=== PATIENT | female | born 1965 | race Caucasian/White ===

== ENCOUNTER 2023-03-05 11:32 | Inpatient (IN) | payer OTHER, MEDICAID, SELFPAY ==
[2023-03-05] VITALS (155 sets, daily range): BP systolic 103–220; BP diastolic 46–105; PULSE 55–90; RESP 9–38; TEMP 33.1–36.4; O2SAT 90–100; BMI 34.3; BMI 33.2
--- NOTE | 2023-03-05 11:32 | DI.CT.S_ITS ---
PROCEDURE: CT STROKE INDICATIONS: stroke TECHNIQUE: Noncontrast 4.5 mm thick angled axial sections acquired from the foramen magnum to the vertex, with coronal reformats. For radiation dose reduction, the following was used: automated exposure control, adjustment of mA and/or kV according to patient size. COMPARISON: None. FINDINGS: Image quality: Excellent. CSF spaces: Basal cisterns are patent. No extra-axial fluid collections. Ventricles are normal in size and shape. Brain: There is a small intraparenchymal hematoma in the posterior fossa at the left midline measuring about 1.4 x 0.9 x 1.4 cm in the left paramedian cerebellar hemisphere posterior to the 4th ventricle. No intraventricular hemorrhage. There are scattered changes white matter hypodensity in periventricular and subcortical regions bilaterally. Cerebral medellin-white matter interface remains normal. Skull and face: Calvarium and visualized facial bones are intact, without suspicious lesions. Sinuses: Mild mucosal thickening in the sinuses bilaterally. No fluid levels. Mastoid cavities are clear. IMPRESSION: 1. Small acute left paramedian cerebellar parenchymal hematoma. 2. Changes mild chronic small vessel ischemia in the cerebral white matter. 3. Findings discussed with Dr. Taylor in the emergency room at 10:51 hours [place] daylight time. Dictated by: Inga Martinez M.D. on 03/05/2023 at 10:50 Approved by: Inga Martinez M.D. on 03/05/2023 at 10:56
--- NOTE | 2023-03-05 11:33 | DI.CT.S_ITS ---
PROCEDURE: CT ANGIO HEAD AND NECK INDICATIONS: stroke TECHNIQUE: After the administration of intravenous contrast, 1 mm thick sections acquired from the aortic arch through the [place]. Post-contrast 4.5 mm thick sections then re-acquired from the foramen magnum to the vertex. 3-dimensional vfiocpc-ymuiafoxw-txnxjxpfwi (MIP) and/or volume rendering reformats were acquired of the central intracranial vasculature and neck separately. For radiation dose reduction, the following was used: automated exposure control, adjustment of mA and/or kV according to patient size. COMPARISON: None. FINDINGS: Image quality: Excellent. BRAIN: CSF spaces: Ventricles are normal in size and shape. Basal cisterns are patent. No extra-axial fluid collections. Brain: No midline shift. Small left paramedian cerebellar hematoma. Lange-white matter interface appears intact. Skull and face: Calvarium and facial bones appear intact, without suspicious lesions. Orbits appear normal. Sinuses: Sinuses and mastoids are clear. HEAD CT ANGIOGRAPHY: Anterior circulation: Intracranial internal carotid arteries are normal in size and flow. The flow within the paired anterior cerebral arteries is normal and symmetric. The flow within the middle cerebral arteries is normal and symmetric. The anterior communicating artery is seen. No aneurysms are seen. Posterior circulation: Visualized portions of the vertebral arteries demonstrate normal caliber, and join to form a normal appearing basilar artery. Flow within the posterior cerebral arteries is normal and symmetric. No aneurysms are seen. NECK CT ANGIOGRAPHY: Carotid system: The great vessels demonstrate a conventional anatomy as they arise from the aortic arch. The origins of the common carotid arteries appear patent. The common carotid arteries demonstrate normal caliber and courses. The bifurcation regions are both widely patent. The left internal carotid artery demonstrates narrowing secondary to noncalcified plaque along the proximal portion for a length of 1.2 cm. This is estimated to be between 50-69%. Mild calcification in the right proximal ICA demonstrates less than 50% subjective luminal stenosis. Posterior circulation: The origins of the vertebral arteries both appear widely patent. The more superior extracranial portions of both vertebral arteries also demonstrate normal courses and calibers. They join to form a normal appearing basilar artery. Soft tissues: Visualized neck soft tissues demonstrate no suspicious abnormalities. Right inferior pole thyroid nodule. Bones: No suspicious bony lesions. Visualized cervical spine appears normally aligned. IMPRESSION: 1. Left paramedian cerebellar intraparenchymal hemorrhage is redemonstrated. 2. No evidence of aneurysm. 3. Normal intracranial arterial circulation. 4. Moderate noncalcified left proximal ICA stenosis, 50-69%. 5. Normal vertebral arterial system. Any quantitative measurements of stenosis were performed using NASCET criteria. Dictated by: Inga Martinez M.D. on 03/05/2023 at 11:10 Approved by: Inga Martinez M.D. on 03/05/2023 at 11:22
--- NOTE | 2023-03-05 11:36 | ED.NEUROSD ---
HPI - Neuro Symptoms/Deficit General Chief Complaint: Neuro Symptoms/Deficit Stated Complaint: stroke Time Seen by Provider: 03/05/23 11:35 History of Present Illness HPI Narrative: 57-year-old female with history of hypertension and multiple prior strokes without residual deficits presents by [facility] for evaluation of an acute onset of neurologic symptoms at about 10 15 this morning. She was at a friend's house when she developed sudden onset difficulty in finding words and slurring at which point EMS was activated. On their arrival they found her to have difficulty with speech and affixed rightward gaze, initial blood pressure was in the 220s over 140s and by the time of arrival she was in the 170s over 120s. Just prior to her arrival she started demonstrating signs of improvement including full range of motion of her extraocular muscles and some improvement with speech. She does not take blood thinners, prior strokes for all thought to be related to hypertensive emergencies. She reportedly is prescribed only Lisinopril and has not been compliant. She denies any recent trauma or injury. Confirms she takes no blood thinners. She denies any recent bleeding or surgical procedures. She states she is feeling much better than when EMS arrived. she is activated as a code stroke and taken directly to CT Related Data Allergies Allergy/AdvReac Type Severity Reaction Status Date / Time No Known Drug Allergies Allergy Verified 03/05/23 11:52 Review of Systems Review of Systems Narrative: GENERAL: see HPI HEENT: Denies sinus pain, ear pain, sore throat, difficulty swallowing, dizziness. RESPIRATORY: Denies dyspnea, cough, wheezing, hemoptysis, sputum. CARDIOVASCULAR: Denies chest pain, palpitations, orthopnea, edema, GASTROINTESTINAL: Denies nausea, vomiting, abdominal pain, diarrhea, constipation, melena. : Denies dysuria, frequency, incontinence, hematuria, urinary retention. MUSCULOSKELETAL: denies weakness, joint pain, or bony pain SKIN: Denies rash, skin lesions, or other NEUROLOGIC: see HPI PSYCHIATRIC: No concerning psychosocial issues. 12 point review of systems is negative except for those stated above Patient History Medical History (Updated 03/05/23 @ 17:44 by Michoacano Taylor DO) Hypertension Exam Narrative Exam Narrative: GENERAL: [57] year old patient appears stated age. Well-developed patient, in moderate distress, eyes closed but open on command. GCS 15 HEAD: Atraumatic. Normocephalic. EYES: Pupils equal round and reactive. Extraocular motions intact. No scleral icterus. No injection or drainage. ENT: Nose without bleeding, purulent drainage. Throat without erythema, tonsillar hypertrophy or exudate. Airway patent. NECK: Trachea midline. Non tender CARDIOVASCULAR: Regular rate and rhythm without murmurs, gallops, or rubs. RESPIRATORY: Clear to auscultation. Breath sounds equal bilaterally. No wheezes, rales, or rhonchi. GASTROINTESTINAL: Abdomen soft, non-tender, nondistended. EXTREMITIES: No edema or joint tenderness. BACK: Nontender without deformity or crepitance. No flank tenderness. NEURO: AOx3. SKIN: No rash or erythema of visible areas Initial Vital Signs Initial Vital Signs: Vital Signs Temperature 96.1 F L 03/05/23 11:39 Pulse Rate 79 03/05/23 11:39 Respiratory Rate 14 03/05/23 11:39 Blood Pressure 212/105 H 03/05/23 11:39 Scores NIH Stroke Scale Level of Conciousness: Alert, keenly responsive Ask month/age: Answers both questions correctly. Open/close eyes, close hand: Performs both tasks correctly Best gaze horizontal: Normal Visual harris: No visual loss Facial palsy: Normal symetrical movement Left arm drift: No drift for full 10 sec Right arm drift: No drift for full 10 sec Left leg drift: No drift for full 5 sec Right leg drift: No drift for full 5 sec Limb ataxia: Absent Sensory on face/arms/legs: Normal, no sensory loss Course Orders Ordered: ED Orders 03/05/23 11:30 Complete Blood Count AUTO DIFF Stat PTT Partial Thromboplastin Ramesh Stat Prothrombin Time INR Stat 03/05/23 11:32 CT Stroke Stat EKG-12 Lead Stat 03/05/23 11:33 CT angio head and neck Stat 03/05/23 11:55 COVID19 -Nasal RAPID Stat 03/05/23 12:10 Comprehensive Metabolic Panel Stat Ethanol (ETOH) Stat Troponin & CK Cardiac Panel Stat 03/05/23 12:28 Urinalysis and Microscopic Stat Urine Drug Screen, Rapid Stat 03/05/23 15:42 Chest [XR chest 1V] Stat 03/05/23 15:43 CT head/brain wo con Stat Acetaminophen (Acetaminophen 325 Mg Tablet) 650 mg PO Q6H PRN PRN Reason: Fever/Mild Pain (1-3) Nicardipine HCl 25 mg/ Sodium (Chloride) 250 mls @ 50 mls/hr IV TITRATE ANNA; Protocol Last Titration: 03/05/23 17:15 Dose: 0 mg/hr, 0 mls/hr Documented By: Titration: 03/05/23 15:23 Dose: 0 mg/hr, 0 mls/hr Documented By: Titration: 03/05/23 15:14 Dose: 3 mg/hr, 30 mls/hr Documented By: Titration: 03/05/23 14:49 Dose: 5 mg/hr, 50 mls/hr Documented By: Titration: 03/05/23 14:26 Dose: 3.5 mg/hr, 35 mls/hr Documented By: Titration: 03/05/23 14:00 Dose: 0 mg/hr, 0 mls/hr Documented By: Titration: 03/05/23 13:42 Dose: 3.5 mg/hr, 35 mls/hr Documented By: Titration: 03/05/23 13:06 Dose: 7 mg/hr, 70 mls/hr Documented By: Titration: 03/05/23 12:45 Dose: 6 mg/hr, 60 mls/hr Documented By: Titration: 03/05/23 12:25 Dose: 5 mg/hr, 50 mls/hr Documented By: Titration: 03/05/23 12:20 Dose: 7 mg/hr, 70 mls/hr Documented By: Admin: 03/05/23 12:02 Dose: 5 mg/hr, 50 mls/hr Documented By: RB Labetalol HCl (Labetalol 20 Mg/4 Ml Syringe) 20 mg IV Q4HR PRN; Protocol PRN Reason: SBP>160 Naloxone HCl (Naloxone 0.4 Mg/Ml Vial) 0.2 mg IV Q2MIN PRN PRN Reason: Opiate Reversal Pantoprazole Sodium (Pantoprazole Dr 40 Mg Tablet) 20 mg PO 0700 ANNA Discontinued Medications Labetalol HCl (Labetalol 20 Mg/4 Ml Syringe) 20 mg IV NOW ONE; Protocol Stop: 03/05/23 11:47 Last Admin: 03/05/23 11:52 Dose: 20 mg Documented By: RB Ondansetron HCl (Ondansetron 4 Mg/2 Ml Inj) 4 mg IV NOW ONE Stop: 03/05/23 15:26 Last Admin: 03/05/23 15:27 Dose: 4 mg Documented By: GOYO Reevaluation(s) Reevaluation #1: patient is not a tPA candidate as her head CT shows acute bleed call to [facility] called spoke with Dr. Adams, we have discussed the patient's clinical course, she has reviewed the images and agrees with nicardipine to control blood pressure with systolic ceiling of 160. Given relatively minor symptoms and size of bleed she recommends aggressive blood pressure treatment, frequent neuro checks and in the absence of any clinical change recommends repeat head CT at the 4-6 hour beth to discuss a plan moving forward Time: 11:45 Consultations Consultation #1: discussed with hospitalist after receipt of repeat head CT which thankfully shows no interval change, patient appropriate for admission here, per my discussion with Neurology noted above there is no indication for transfer in the absence of significant neurologic change or worsening imaging Vital Signs Vital signs: Vital Signs - 8 hr 03/05/23 11:39 03/05/23 11:49 03/05/23 11:42 Temperature 96.1 F L Pulse Rate 79 68 64 Respiratory Rate 14 16 Blood Pressure 212/105 H Pulse Oximetry Oxygen Delivery Method 03/05/23 11:44 03/05/23 11:44 03/05/23 11:45 Temperature Pulse Rate 63 61 Respiratory Rate 14 14 Blood Pressure 212/105 H Pulse Oximetry Oxygen Delivery Method 03/05/23 11:52 03/05/23 11:50 03/05/23 11:51 Temperature Pulse Rate 62 59 L Respiratory Rate 9 L Blood Pressure 220/97 H 220/97 H Pulse Oximetry 96 Oxygen Delivery Method 03/05/23 11:51 03/05/23 11:55 03/05/23 11:55 Temperature Pulse Rate 64 60 Respiratory Rate 10 L 14 Blood Pressure 216/103 H Pulse Oximetry 98 97 Oxygen Delivery Method 03/05/23 12:00 03/05/23 12:02 03/05/23 12:02 Temperature Pulse Rate 59 L 56 L Respiratory Rate 19 13 Blood Pressure 157/91 H Pulse Oximetry 98 Oxygen Delivery Method 03/05/23 12:05 03/05/23 12:05 03/05/23 12:10 Temperature Pulse Rate 55 L Respiratory Rate 14 Blood Pressure 183/94 H 179/93 H Pulse Oximetry 96 Oxygen Delivery Method 03/05/23 12:10 03/05/23 12:15 03/05/23 12:15 Temperature Pulse Rate 59 L 58 L Respiratory Rate 15 15 Blood Pressure 168/93 H Pulse Oximetry 98 98 Oxygen Delivery Method 03/05/23 12:20 03/05/23 12:21 03/05/23 12:21 Temperature Pulse Rate 58 L 58 L Respiratory Rate 15 16 Blood Pressure 141/80 H Pulse Oximetry 98 98 Oxygen Delivery Method 03/05/23 12:25 03/05/23 12:25 03/05/23 12:30 Temperature 91.6 F L Pulse Rate 59 L Respiratory Rate 14 Blood Pressure 135/75 155/75 H Pulse Oximetry 99 Oxygen Delivery Method 03/05/23 12:30 03/05/23 12:35 03/05/23 12:35 Temperature 93.2 F L 93.9 F L Pulse Rate 60 59 L Respiratory Rate 15 15 Blood Pressure 153/77 H Pulse Oximetry 96 96 Oxygen Delivery Method 03/05/23 12:40 03/05/23 12:40 03/05/23 12:45 Temperature 94.1 F L Pulse Rate 58 L Respiratory Rate 13 Blood Pressure 139/71 143/74 H Pulse Oximetry 97 Oxygen Delivery Method Room Air 03/05/23 12:45 03/05/23 12:50 03/05/23 12:50 Temperature 94.1 F L 94.1 F L Pulse Rate 59 L 58 L Respiratory Rate 21 17 Blood Pressure 138/75 Pulse Oximetry 97 97 Oxygen Delivery Method Room Air Room Air 03/05/23 12:55 03/05/23 12:55 03/05/23 13:00 Temperature 94.1 F L Pulse Rate 60 Respiratory Rate 16 Blood Pressure 144/78 H 143/69 H Pulse Oximetry 96 Oxygen Delivery Method Room Air 03/05/23 13:00 03/05/23 13:05 03/05/23 13:05 Temperature 94.1 F L 94.1 F L Pulse Rate 59 L 59 L Respiratory Rate 12 14 Blood Pressure 139/74 Pulse Oximetry 97 96 Oxygen Delivery Method Room Air 03/05/23 13:10 03/05/23 13:10 03/05/23 13:15 Temperature 94.1 F L Pulse Rate 59 L Respiratory Rate 12 Blood Pressure 141/74 H 136/76 Pulse Oximetry 96 Oxygen Delivery Method Room Air 03/05/23 13:15 03/05/23 13:20 03/05/23 13:20 Temperature 94.3 F L 94.3 F L Pulse Rate 60 58 L Respiratory Rate 13 12 Blood Pressure 125/68 Pulse Oximetry 96 95 Oxygen Delivery Method 03/05/23 13:25 03/05/23 13:25 03/05/23 13:30 Temperature 94.3 F L Pulse Rate 63 Respiratory Rate 15 Blood Pressure 126/72 146/78 H Pulse Oximetry 96 Oxygen Delivery Method 03/05/23 13:30 03/05/23 13:35 03/05/23 13:35 Temperature 94.3 F L 94.3 F L Pulse Rate 66 64 Respiratory Rate 13 12 Blood Pressure 144/77 H Pulse Oximetry 94 96 Oxygen Delivery Method Room Air 03/05/23 13:40 03/05/23 13:40 03/05/23 13:45 Temperature 94.3 F L Pulse Rate 62 Respiratory Rate 12 Blood Pressure 130/72 120/70 Pulse Oximetry 96 Oxygen Delivery Method 03/05/23 13:45 03/05/23 13:50 03/05/23 13:50 Temperature 94.5 F L 94.5 F L Pulse Rate 63 63 Respiratory Rate 13 13 Blood Pressure 122/68 Pulse Oximetry 95 94 Oxygen Delivery Method 03/05/23 13:55 03/05/23 13:55 03/05/23 14:00 Temperature 94.6 F L Pulse Rate 64 Respiratory Rate 14 Blood Pressure 119/66 115/64 Pulse Oximetry 93 Oxygen Delivery Method 03/05/23 14:00 03/05/23 14:05 03/05/23 14:05 Temperature 94.6 F L 94.8 F L Pulse Rate 65 65 Respiratory Rate 14 15 Blood Pressure 132/70 Pulse Oximetry 93 93 Oxygen Delivery Method Room Air 03/05/23 14:10 03/05/23 14:10 03/05/23 14:15 Temperature 94.8 F L Pulse Rate 65 Respiratory Rate 14 Blood Pressure 139/70 163/80 H Pulse Oximetry 93 Oxygen Delivery Method 03/05/23 14:15 03/05/23 14:20 03/05/23 14:20 Temperature 95.0 F L 95.2 F L Pulse Rate 65 62 Respiratory Rate 15 15 Blood Pressure 150/79 H Pulse Oximetry 93 94 Oxygen Delivery Method 03/05/23 14:25 03/05/23 14:25 03/05/23 14:30 Temperature 95.5 F L Pulse Rate 69 Respiratory Rate 12 Blood Pressure 157/84 H 146/83 H Pulse Oximetry 96 Oxygen Delivery Method 03/05/23 14:30 03/05/23 14:35 03/05/23 14:35 Temperature 95.7 F L 95.7 F L Pulse Rate 68 70 Respiratory Rate 13 15 Blood Pressure 138/79 164/80 H Pulse Oximetry 96 96 Oxygen Delivery Method 03/05/23 14:40 03/05/23 14:40 03/05/23 14:45 Temperature 96.1 F L Pulse Rate 70 Respiratory Rate 16 Blood Pressure 154/74 H 164/80 H Pulse Oximetry 93 Oxygen Delivery Method 03/05/23 14:45 03/05/23 14:50 03/05/23 14:50 Temperature 96.3 F L 96.4 F L Pulse Rate 78 75 Respiratory Rate 13 14 Blood Pressure 161/80 H Pulse Oximetry 92 96 Oxygen Delivery Method 03/05/23 14:55 03/05/23 14:55 03/05/23 15:00 Temperature 96.4 F L Pulse Rate 76 Respiratory Rate 15 Blood Pressure 150/74 H 124/62 149/73 H Pulse Oximetry 95 Oxygen Delivery Method 03/05/23 15:00 03/05/23 15:05 03/05/23 15:05 Temperature 96.6 F L 96.8 F L Pulse Rate 78 78 Respiratory Rate 14 16 Blood Pressure 130/64 Pulse Oximetry 94 94 Oxygen Delivery Method 03/05/23 15:10 03/05/23 15:10 03/05/23 15:15 Temperature 96.8 F L Pulse Rate 78 Respiratory Rate 17 Blood Pressure 124/62 113/60 Pulse Oximetry 93 Oxygen Delivery Method 03/05/23 15:15 03/05/23 15:20 03/05/23 15:23 Temperature 97.0 F L 97.0 F L Pulse Rate 77 90 Respiratory Rate 14 16 Blood Pressure 132/63 Pulse Oximetry 93 Oxygen Delivery Method 03/05/23 15:23 03/05/23 15:25 03/05/23 15:25 Temperature 97.0 F L 97.0 F L Pulse Rate 76 72 Respiratory Rate 20 19 Blood Pressure 151/76 H 131/66 Pulse Oximetry 93 90 L Oxygen Delivery Method 03/05/23 15:30 03/05/23 15:30 03/05/23 15:35 Temperature 97.0 F L Pulse Rate 73 Respiratory Rate 18 Blood Pressure 124/62 126/62 Pulse Oximetry 94 Oxygen Delivery Method 03/05/23 15:35 03/05/23 15:40 03/05/23 15:40 Temperature 96.8 F L 96.8 F L Pulse Rate 68 69 Respiratory Rate 15 15 Blood Pressure 133/67 Pulse Oximetry 91 91 Oxygen Delivery Method 03/05/23 15:45 03/05/23 15:45 03/05/23 15:50 Temperature 96.8 F L Pulse Rate 68 Respiratory Rate 15 Blood Pressure 131/70 127/66 Pulse Oximetry 93 Oxygen Delivery Method 03/05/23 15:50 03/05/23 15:55 03/05/23 15:55 Temperature 96.6 F L 96.6 F L Pulse Rate 72 69 Respiratory Rate 16 18 Blood Pressure 129/70 Pulse Oximetry 94 92 Oxygen Delivery Method 03/05/23 16:00 03/05/23 16:00 03/05/23 16:15 Temperature 96.6 F L Pulse Rate 71 Respiratory Rate 18 Blood Pressure 126/69 103/46 L Pulse Oximetry 93 Oxygen Delivery Method 03/05/23 16:15 03/05/23 16:16 03/05/23 16:18 Temperature 96.3 F L 96.3 F L Pulse Rate 62 60 Respiratory Rate 18 15 Blood Pressure 151/76 H Pulse Oximetry 95 96 Oxygen Delivery Method 03/05/23 16:18 03/05/23 16:20 03/05/23 16:20 Temperature 96.1 F L 96.1 F L Pulse Rate 74 62 Respiratory Rate 32 H 22 Blood Pressure 136/71 Pulse Oximetry 98 96 Oxygen Delivery Method 03/05/23 16:25 03/05/23 16:25 03/05/23 16:30 Temperature 96.1 F L Pulse Rate 60 Respiratory Rate 17 Blood Pressure 137/74 135/74 Pulse Oximetry 98 Oxygen Delivery Method 03/05/23 16:30 Temperature 96.1 F L Pulse Rate 65 Respiratory Rate 16 Blood Pressure Pulse Oximetry 100 Oxygen Delivery Method MDM - Neuro Symptoms/Deficit Lab Data 03/05/23 11:30 03/05/23 12:10 Labs: Lab Results 0503/05/23 03/05/23 Range/Units 11:30 11:30 11:55 WBC 5.3 (4.5-11.0) X10^3/uL RBC 4.53 (4.0-5.2) X10^6/uL Hgb 14.2 (12.0-16.0) g/dL Hct 41.8 (36-46) % MCV 92.3 (80-100) fL MCH 31.3 (26-34) PG MCHC 33.9 (30-36) % RDW 13.2 (11.6-14.8) % Plt Count 188 (150-400) X10^3/uL Neut % (Auto) 59.6 (50-75) % Lymph % (Auto) 26.9 (25-40) % [place] % (Auto) 6.5 (3-14) % Eos % (Auto) 5.6 H (2-4) % Baso % (Auto) 1.4 (0-2) % Neut # (Auto) 3200 (1118-4638) /uL Lymph # (Auto) 1400 (0479-2704) /uL [place] # (Auto) 300 (0-900) /uL Eos # (Auto) 300 (0-450) /uL Baso # (Auto) 100 (0-100) /uL PT 11.4 (10.1-12.7) SECONDS INR 1.0 (0.9-1.3) APTT 25 L (26-36) SECONDS Sodium (137-145) mmol/L Potassium (3.4-5.1) mmol/L Chloride (98-107) mmol/L Carbon Dioxide (22-32) mmol/L BUN (7-17) mg/dL Creatinine (0.52-1.04) mg/dL Estimated GFR (>60) mL/min BUN/Creatinine Ratio (6-22) Glucose (70-100) mg/dL Calcium (8.4-10.2) mg/dL Total Bilirubin (0.2-1.3) mg/dL AST (14-36) IU/L ALT (<35) IU/L Alkaline Phosphatase (38-126) U/L Total Creatine Kinase (30-135) U/L CK-MB (CK-2) CK-MB (CK-2) Rel Index Troponin I (0.01-0.034) ng/mL Total Protein (6.3-8.2) g/dL Albumin (3.5-5.0) g/dL Globulin (1.7-4.1) g/dL Albumin/Globulin Ratio (1.0-2.8) Urine Color Urine Appearance Urine pH (4.5-8.0) Ur Specific [place] (1.000-1.035) Urine Protein (Negative) Urine Glucose (UA) (Negative) g/dL Urine Ketones (NEGATIVE) Urine Occult Blood (Negative) Urine Nitrate (Negative) Urine Bilirubin (NEGATIVE) Urine Urobilinogen (0.2) E.U./dL Ur Leukocyte Esterase (NEGATIVE) Urine RBC (0-5/HPF) Urine WBC (0-5/HPF) Urine Bacteria (None) Ur Culture Indicated? U Opiates 300ng/mL cut (Negative) Ur Oxycodone Screen (Negative) Urine Methadone Screen (Negative) Ur Barbiturates Screen (Negative) U Tricyclic Antidepress (Negative) Ur Phencyclidine Scrn (Negative) Ur Amphetamines Screen (Negative) U Methamphetamines Scrn (Negative) Ur MDMA Scrn (Ecstasy) (Negative) U Benzodiazepines Scrn (Negative) Urine Cocaine Screen (Negative) U Marijuana (THC) Screen (Negative) Ethyl Alcohol ( - 10) mg/dL SARS-CoV-2 (PCR) Negative (Negative) 03/05/23 03/05/23 03/05/23 Range/Units 12:10 12:28 12:28 WBC (4.5-11.0) X10^3/uL RBC (4.0-5.2) X10^6/uL Hgb (12.0-16.0) g/dL Hct (36-46) % MCV (80-100) fL MCH (26-34) PG MCHC (30-36) % RDW (11.6-14.8) % Plt Count (150-400) X10^3/uL Neut % (Auto) (50-75) % Lymph % (Auto) (25-40) % [place] % (Auto) (3-14) % Eos % (Auto) (2-4) % Baso % (Auto) (0-2) % Neut # (Auto) (6440-9927) /uL Lymph # (Auto) (7958-3636) /uL [place] # (Auto) (0-900) /uL Eos # (Auto) (0-450) /uL Baso # (Auto) (0-100) /uL PT (10.1-12.7) SECONDS INR (0.9-1.3) APTT (26-36) SECONDS Sodium 136 L (137-145) mmol/L Potassium 3.9 (3.4-5.1) mmol/L Chloride 102 (98-107) mmol/L Carbon Dioxide 27 (22-32) mmol/L BUN 14 (7-17) mg/dL Creatinine 0.68 (0.52-1.04) mg/dL Estimated GFR > 60 (>60) mL/min BUN/Creatinine Ratio 20.6 (6-22) Glucose 178 H (70-100) mg/dL Calcium 8.4 (8.4-10.2) mg/dL Total Bilirubin 0.4 (0.2-1.3) mg/dL AST 29 (14-36) IU/L ALT 26 (<35) IU/L Alkaline Phosphatase 71 (38-126) U/L Total Creatine Kinase 159 H (30-135) U/L CK-MB (CK-2) TNP CK-MB (CK-2) Rel Index TNP Troponin I < 0.012 (0.01-0.034) ng/mL Total Protein 6.6 (6.3-8.2) g/dL Albumin 3.9 (3.5-5.0) g/dL Globulin 2.7 (1.7-4.1) g/dL Albumin/Globulin Ratio 1.4 (1.0-2.8) Urine Color Yellow Urine Appearance Clear Urine pH 7.0 (4.5-8.0) Ur Specific [place] 1.010 (1.000-1.035) Urine Protein Negative (Negative) Urine Glucose (UA) Trace H (Negative) g/dL Urine Ketones Negative (NEGATIVE) Urine Occult Blood Negative (Negative) Urine Nitrate Negative (Negative) Urine Bilirubin Negative (NEGATIVE) Urine Urobilinogen 0.2 (0.2) E.U./dL Ur Leukocyte Esterase Negative (NEGATIVE) Urine RBC 0-1/hpf (0-5/HPF) Urine WBC 0-1/hpf (0-5/HPF) Urine Bacteria None seen (None) Ur Culture Indicated? Cult not indicated U Opiates 300ng/mL cut Negative (Negative) Ur Oxycodone Screen Negative (Negative) Urine Methadone Screen Negative (Negative) Ur Barbiturates Screen Negative (Negative) U Tricyclic Antidepress Negative (Negative) Ur Phencyclidine Scrn Negative (Negative) Ur Amphetamines Screen Negative (Negative) U Methamphetamines Scrn Positive H (Negative) Ur MDMA Scrn (Ecstasy) Negative (Negative) U Benzodiazepines Scrn Negative (Negative) Urine Cocaine Screen Negative (Negative) U Marijuana (THC) Screen Negative (Negative) Ethyl Alcohol < 10 ( - 10) mg/dL SARS-CoV-2 (PCR) (Negative) Point of Care Testing Glucose POC 115 Critical Care Time Critical Care Time Critical Care Time: Yes Total Critical Care Time: 40 Attestation: The high probability of a clinically significant, sudden or life threatening deterioration of the [[place]] system(s) required my full and direct attention, intervention and personal management. The aggregate critical care time was [40] minutes. This time is in addition to time spent performing reported procedures but includes the following: [x] Data Review and interpretation [x] Patient assessment and monitoring of vital signs [x] Documentation [x] Medication orders and management Discharge Plan Departure Patient Disposition: Admitted As Inpatient Clinical Impression: Intracranial hemorrhage, Hypertensive emergency, Methamphetamine abuse Admit Date/Time: 03/05/23 16:31 Admit Provider: Anjali Murdock
[2023-03-05 11:45] LABS: Add Manual Diff / Slide Review NO; Basophils Absolute Auto 100 /uL (0-100); Basophils Percent Auto 1.4 % (0-2); Eosinophils Absolute Auto 300 /uL (0-450); Eosinophils Percent Auto 5.6 % (2-4); Hematocrit 41.8 % (36-46); Hemoglobin 14.2 g/dL (12.0-16.0); Lymphocytes Absolute Auto 1400 /uL (1100-4500); Lymphocytes Percent Auto 26.9 % (25-40); Mean Corpuscular HGB Conc 33.9 % (30-36); Mean Corpuscular Hemoglobin 31.3 PG (26-34); Mean Corpuscular Volume 92.3 fL (80-100); Monocytes Absolute Auto 300 /uL (0-900); Monocytes Percent Auto 6.5 % (3-14); Neutrophils Absolute Auto 3200 /uL (1500-7000); Neutrophils Percent Auto 59.6 % (50-75); Platelet Count 188 X10^3/uL (150-400); Red Blood Cell Count 4.53 X10^6/uL (4.0-5.2); Red Cell Distribution Width 13.2 % (11.6-14.8); White Blood Cell Count 5.3 X10^3/uL (4.5-11.0)
[2023-03-05 11:48] LABS: UR Morphine/Opiate cutoff 300 Negative (Negative); Ur Creatinine Normal (Normal); Ur Specific Gravity Normal (Normal); Urine Amphetamines Negative (Negative); Urine Barbiturates Negative (Negative); Urine Benzodiazepines Negative (Negative); Urine Cocaine Negative (Negative); Urine MDMA Negative (Negative); Urine Methadone Negative (Negative); Urine Oxycodone Negative (Negative); Urine Phencyclidine Negative (Negative); Urine Tetrahydrocannabinol Negative (Negative); Urine Tricyclic Antidepressant Negative (Negative); Urine pH Normal (Normal)
[2023-03-05] MEDS: LABETALOL 20 MG/4 ML SYRINGE IV ×2 (11:52→23:13)
[2023-03-05 11:55] LABS: Prothrombin Time 11.4 SECONDS (10.1-12.7)
[2023-03-05 11:57] LABS: PTT Partial Thromboplastin Tim 25 SECONDS (26-36)
[2023-03-05] MEDS: NICARDIPINE 25 MG in SODIUM CHLORIDE 0.9% 240 ML 50 MG IV (12:02)
[2023-03-05 12:28] LABS: Alanine Aminotransferase 26 IU/L (<35); Albumin 3.9 g/dL (3.5-5.0); Albumin Globulin Ratio 1.4 (1.0-2.8); Alkaline Phosphatase 71 U/L (38-126); Aspartate Aminotransferase 29 IU/L (14-36); BUN Creatinine Ratio 20.6 (6-22); Bilirubin Total 0.4 mg/dL (0.2-1.3); Blood Urea Nitrogen 14 mg/dL (7-17); Calcium 8.4 mg/dL (8.4-10.2); Carbon Dioxide 27 mmol/L (22-32); Chloride 102 mmol/L (98-107); Creatine Kinase 159 U/L (30-135); Estimated Glomerular Filt Rate > 60 mL/min (>60); Ethanol (ETOH) < 10 mg/dL; Globulin 2.7 g/dL (1.7-4.1); Glucose 178 mg/dL (70-100); HEMOLYSIS < 15 (0-50); Potassium 3.9 mmol/L (3.4-5.1); Sodium 136 mmol/L (137-145); Total Protein 6.6 g/dL (6.3-8.2)
--- NOTE | 2023-03-05 12:38 | PC.NURSE ---
Nicardipine dose change to 6mg/hr
[2023-03-05 12:39] LABS: Troponin I < 0.012 ng/mL (0.01-0.034)
[2023-03-05 12:47] LABS: COVID19 -Nasal RAPID Negative (Negative)
[2023-03-05 12:50] LABS: Urine Methamphetamines Positive (Negative)
[2023-03-05 12:52] LABS: Appearance Urine UA CLEAR; Bilirubin Urine UA NEGATIVE (NEGATIVE); Color Urine UA YELLOW; Glucose Urine UA TRACE g/dL (Negative); Ketones Urine UA NEGATIVE (NEGATIVE); Leukocyte Esterase Urine UA NEGATIVE (NEGATIVE); Nitrite Urine UA NEGATIVE (Negative); Occult Blood Urine UA NEGATIVE (Negative); Protein Urine UA NEGATIVE (Negative); Urobilinogen Urine UA 0.2 E.U./dL (0.2)
--- NOTE | 2023-03-05 12:55 | PC.NURSE ---
patient was drowsy and slightly slurring her words on arrival, then at alertness and speech were reassessed at 1250 and she was more alert and was able to speak more clearly.
[2023-03-05 13:01] LABS: Bacteria Urine None Seen; Culture Indicated Urine Cult Not Indicated; RBC Urine 0-1/HPF (0-5/HPF); WBC Urine 0-1/HPF (0-5/HPF)
--- NOTE | 2023-03-05 13:24 | PC.NURSE ---
patient is alert but dizzy and head movement makes her nauseated.
[2023-03-05] MEDS: ONDANSETRON 4 MG/2 ML INJ IV (15:27)
--- NOTE | 2023-03-05 15:42 | DI.RAD.S_ITS ---
PROCEDURE: XR CHEST 1V INDICATIONS: SOB TECHNIQUE: One view of the chest was acquired. COMPARISON: None. FINDINGS: Surgical changes and devices: None. Lungs and pleura: Low lung volumes. No consolidations, effusions, or pneumothorax. Mediastinum: Given supine positioning, cardiomediastinal contour is normal. Heart size is normal. No central venous congestion. Bones and chest wall: No suspicious bony lesions. Overlying soft tissues appear unremarkable. IMPRESSION: 1. Given supine positioning, no acute cardiopulmonary disease. Dictated by: Inga Martinez M.D. on 03/05/2023 at 15:35 Approved by: Inga Martinez M.D. on 03/05/2023 at 15:36
--- NOTE | 2023-03-05 15:43 | DI.CT.S_ITS ---
PROCEDURE: CT HEAD/BRAIN WO CON INDICATIONS: stroke protocol TECHNIQUE: Noncontrast 4.5 mm thick angled axial sections acquired from the foramen magnum to the vertex, with coronal and sagittal reformats. For radiation dose reduction, the following was used: automated exposure control, adjustment of mA and/or kV according to patient size. COMPARISON: [facility], CT, CT STROKE, 03/05/2023, 11:35. FINDINGS: Image quality: Excellent. CSF spaces: Basal cisterns are patent. No extra-axial fluid collections. Ventricles are normal in size and shape. No developing hydrocephalus. Brain: No midline shift. Left medial cerebellar hematoma is fairly stable in size measuring 1.5 x 0.9 x 1.2 cm. There is stable mild adjacent vasogenic edema in the medial cerebellum. No visible midline shift and no new downward herniation. No areas of new intraparenchymal hemorrhage. Findings are on a background moderate small-vessel ischemic change. Lange-white matter interface is normal. Skull and face: Calvarium and visualized facial bones are intact, without suspicious lesions. Sinuses: Visualized sinuses and mastoids are clear. IMPRESSION: 1. No change to small left cerebellar hematoma and adjacent edema. 2. Findings called to the emergency room at 15:24 hours [place] daylight time. Dictated by: Inga Martinez M.D. on 03/05/2023 at 15:18 Approved by: Inga Martinez M.D. on 03/05/2023 at 15:25
--- NOTE | 2023-03-05 16:59 | P.HP_ITS ---
History of Present Illness History of Present Illness Chief complaint: stroke Narrative: 57-year-old female with history of previous ischemic stroke 2 years ago, intermittent TIAs, hypertension (presently off of her prescribed lisinopril), tobacco dependence, methamphetamine abuse, and current homelessness presented to the emergency department with acute onset of difficulty walking, slurred speech, and word-finding difficulty. She notes she got up to go to the bathroom and kept falling to the side. She was staying at a friend's house and notes they were drinking alcohol last evening, but she states she did not drink very much. Due to her symptoms, EMS was called. When they arrived, they found her with a fixed rightward gaze, difficulty with speech, and initial blood pressures of 220/140. Prior to arrival in the emergency department, her symptoms began improving. Her blood pressure also improved to 170s over 120s. In the emergency department, labs were completed which were fairly unremarkable. She did have an elevated glucose of 178. CPK was 159. UA revealed trace glucose but was otherwise negative. Urine drug screen was positive for methamphetamines. SARs CoV 2 testing was negative. Coags were performed and were negative. Initial CT scan revealed a small acute left paramedian ce rebellar parenchymal hematoma. Changes of mild chronic small-vessel ischemia in the cerebral white matter. CTA of the head and neck revealed redemonstration of the left paramedian cerebellar intraparenchymal hemorrhage, no evidence of aneurysm, normal intracranial arterial circulation, moderate noncalcified left proximal ICA stenosis 50-69%. Normal vertebral artery system. Tele stroke was contacted by the emergency department. They recommended nicardipine drip and repeat CT scan of the head in 4-6 hours. If findings were stable, they recommended no further interventions and suggested the patient could be admitted to the hospital here and did not require transfer. Chest x-ray was performed and revealed no acute cardiopulmonary process. Patient's blood pressures normalized while on the nicardipine. Follow-up head CT was performed with no change to the small left cerebellar hematoma and adjacent edema were noted. Patient is now admitted to the intensive care unit. She is having some elevated blood pressure after being weaned off of the nicardipine drip. She can is of significant nausea and vertiginous symptoms with any movement. She is lying on her right side with her eyes closed. She denies any residual speech deficits. No tingling or numbness. No weakness. NIH score is presently 1. She tells me she last used methamphetamine 2 nights ago. She states she is afraid of the dark and has been couch surfing and therefore uses methamphetamine to help her stay awake. She describes using intermittently rather than daily. She notes that she was supposed to get her lisinopril refilled but the physician never sent it in so she failed to follow up on it. [facility] Medical History (Updated 03/05/23 @ 17:44 by Michoacano Taylor DO) Hypertension Comment: Past medical history: Previous cerebrovascular accident 2 years ago reportedly ischemic per patient TIAs x2 since her stroke, for which she did not seek care Tobacco dependence-quit 4 months ago Methamphetamine abuse Hypertension, presently untreated Class 1 obesity Homelessness Family history: Father from COVID last year Mother 2 days after her father from a traumatic injury and desire not to participate in treatment after her 's Social history: As above, patient is presently staying with a friend but is homeless Quit tobacco 4 months ago Social alcohol use per patient's report Methamphetamine use as noted Meds Home Medications and Allergies Allergies Allergy/AdvReac Type Severity Reaction Status Date / Time No Known Drug Allergies Allergy Verified 03/05/23 11:52 Review of Systems Review of Systems Narrative: All other systems were reviewed negative Exam Vital Signs (past 8 hours): - 03/05/23 11:39 03/05/23 11:49 03/05/23 11:42 Temperature 96.1 F L Pulse Rate 79 68 64 Respiratory Rate 14 16 Blood Pressure 212/105 H Pulse Oximetry Oxygen Delivery Method 03/05/23 11:44 03/05/23 11:44 03/05/23 11:45 Temperature Pulse Rate 63 61 Respiratory Rate 14 14 Blood Pressure 212/105 H Pulse Oximetry Oxygen Delivery Method 03/05/23 11:52 03/05/23 11:50 03/05/23 11:51 Temperature Pulse Rate 62 59 L Respiratory Rate 9 L Blood Pressure 220/97 H 220/97 H Pulse Oximetry 96 Oxygen Delivery Method 03/05/23 11:51 03/05/23 11:55 03/05/23 11:55 Temperature Pulse Rate 64 60 Respiratory Rate 10 L 14 Blood Pressure 216/103 H Pulse Oximetry 98 97 Oxygen Delivery Method 03/05/23 12:00 03/05/23 12:02 03/05/23 12:02 Temperature Pulse Rate 59 L 56 L Respiratory Rate 19 13 Blood Pressure 157/91 H Pulse Oximetry 98 Oxygen Delivery Method 03/05/23 12:05 03/05/23 12:05 03/05/23 12:10 Temperature Pulse Rate 55 L Respiratory Rate 14 Blood Pressure 183/94 H 179/93 H Pulse Oximetry 96 Oxygen Delivery Method 03/05/23 12:10 03/05/23 12:15 03/05/23 12:15 Temperature Pulse Rate 59 L 58 L Respiratory Rate 15 15 Blood Pressure 168/93 H Pulse Oximetry 98 98 Oxygen Delivery Method 03/05/23 12:20 03/05/23 12:21 03/05/23 12:21 Temperature Pulse Rate 58 L 58 L Respiratory Rate 15 16 Blood Pressure 141/80 H Pulse Oximetry 98 98 Oxygen Delivery Method 03/05/23 12:25 03/05/23 12:25 03/05/23 12:30 Temperature 91.6 F L Pulse Rate 59 L Respiratory Rate 14 Blood Pressure 135/75 155/75 H Pulse Oximetry 99 Oxygen Delivery Method 03/05/23 12:30 03/05/23 12:35 03/05/23 12:35 Temperature 93.2 F L 93.9 F L Pulse Rate 60 59 L Respiratory Rate 15 15 Blood Pressure 153/77 H Pulse Oximetry 96 96 Oxygen Delivery Method 03/05/23 12:40 03/05/23 12:40 03/05/23 12:45 Temperature 94.1 F L Pulse Rate 58 L Respiratory Rate 13 Blood Pressure 139/71 143/74 H Pulse Oximetry 97 Oxygen Delivery Method Room Air 03/05/23 12:45 03/05/23 12:50 03/05/23 12:50 Temperature 94.1 F L 94.1 F L Pulse Rate 59 L 58 L Respiratory Rate 21 17 Blood Pressure 138/75 Pulse Oximetry 97 97 Oxygen Delivery Method Room Air Room Air 03/05/23 12:55 03/05/23 12:55 03/05/23 13:00 Temperature 94.1 F L Pulse Rate 60 Respiratory Rate 16 Blood Pressure 144/78 H 143/69 H Pulse Oximetry 96 Oxygen Delivery Method Room Air 03/05/23 13:00 03/05/23 13:05 03/05/23 13:05 Temperature 94.1 F L 94.1 F L Pulse Rate 59 L 59 L Respiratory Rate 12 14 Blood Pressure 139/74 Pulse Oximetry 97 96 Oxygen Delivery Method Room Air 03/05/23 13:10 03/05/23 13:10 03/05/23 13:15 Temperature 94.1 F L Pulse Rate 59 L Respiratory Rate 12 Blood Pressure 141/74 H 136/76 Pulse Oximetry 96 Oxygen Delivery Method Room Air 03/05/23 13:15 03/05/23 13:20 03/05/23 13:20 Temperature 94.3 F L 94.3 F L Pulse Rate 60 58 L Respiratory Rate 13 12 Blood Pressure 125/68 Pulse Oximetry 96 95 Oxygen Delivery Method 03/05/23 13:25 03/05/23 13:25 03/05/23 13:30 Temperature 94.3 F L Pulse Rate 63 Respiratory Rate 15 Blood Pressure 126/72 146/78 H Pulse Oximetry 96 Oxygen Delivery Method 03/05/23 13:30 03/05/23 13:35 03/05/23 13:35 Temperature 94.3 F L 94.3 F L Pulse Rate 66 64 Respiratory Rate 13 12 Blood Pressure 144/77 H Pulse Oximetry 94 96 Oxygen Delivery Method Room Air 03/05/23 13:40 03/05/23 13:40 03/05/23 13:45 Temperature 94.3 F L Pulse Rate 62 Respiratory Rate 12 Blood Pressure 130/72 120/70 Pulse Oximetry 96 Oxygen Delivery Method 03/05/23 13:45 03/05/23 13:50 03/05/23 13:50 Temperature 94.5 F L 94.5 F L Pulse Rate 63 63 Respiratory Rate 13 13 Blood Pressure 122/68 Pulse Oximetry 95 94 Oxygen Delivery Method 03/05/23 13:55 03/05/23 13:55 03/05/23 14:00 Temperature 94.6 F L Pulse Rate 64 Respiratory Rate 14 Blood Pressure 119/66 115/64 Pulse Oximetry 93 Oxygen Delivery Method 03/05/23 14:00 03/05/23 14:05 03/05/23 14:05 Temperature 94.6 F L 94.8 F L Pulse Rate 65 65 Respiratory Rate 14 15 Blood Pressure 132/70 Pulse Oximetry 93 93 Oxygen Delivery Method Room Air 03/05/23 14:10 03/05/23 14:10 03/05/23 14:15 Temperature 94.8 F L Pulse Rate 65 Respiratory Rate 14 Blood Pressure 139/70 163/80 H Pulse Oximetry 93 Oxygen Delivery Method 03/05/23 14:15 03/05/23 14:20 03/05/23 14:20 Temperature 95.0 F L 95.2 F L Pulse Rate 65 62 Respiratory Rate 15 15 Blood Pressure 150/79 H Pulse Oximetry 93 94 Oxygen Delivery Method 03/05/23 14:25 03/05/23 14:25 03/05/23 14:30 Temperature 95.5 F L Pulse Rate 69 Respiratory Rate 12 Blood Pressure 157/84 H 146/83 H Pulse Oximetry 96 Oxygen Delivery Method 03/05/23 14:30 03/05/23 14:35 03/05/23 14:35 Temperature 95.7 F L 95.7 F L Pulse Rate 68 70 Respiratory Rate 13 15 Blood Pressure 138/79 164/80 H Pulse Oximetry 96 96 Oxygen Delivery Method 03/05/23 14:40 03/05/23 14:40 03/05/23 14:45 Temperature 96.1 F L Pulse Rate 70 Respiratory Rate 16 Blood Pressure 154/74 H 164/80 H Pulse Oximetry 93 Oxygen Delivery Method 03/05/23 14:45 03/05/23 14:50 03/05/23 14:50 Temperature 96.3 F L 96.4 F L Pulse Rate 78 75 Respiratory Rate 13 14 Blood Pressure 161/80 H Pulse Oximetry 92 96 Oxygen Delivery Method 03/05/23 14:55 03/05/23 14:55 03/05/23 15:00 Temperature 96.4 F L Pulse Rate 76 Respiratory Rate 15 Blood Pressure 150/74 H 124/62 149/73 H Pulse Oximetry 95 Oxygen Delivery Method 03/05/23 15:00 03/05/23 15:05 03/05/23 15:05 Temperature 96.6 F L 96.8 F L Pulse Rate 78 78 Respiratory Rate 14 16 Blood Pressure 130/64 Pulse Oximetry 94 94 Oxygen Delivery Method 03/05/23 15:10 03/05/23 15:10 03/05/23 15:15 Temperature 96.8 F L Pulse Rate 78 Respiratory Rate 17 Blood Pressure 124/62 113/60 Pulse Oximetry 93 Oxygen Delivery Method 03/05/23 15:15 03/05/23 15:20 03/05/23 15:23 Temperature 97.0 F L 97.0 F L Pulse Rate 77 90 Respiratory Rate 14 16 Blood Pressure 132/63 Pulse Oximetry 93 Oxygen Delivery Method 03/05/23 15:23 03/05/23 15:25 03/05/23 15:25 Temperature 97.0 F L 97.0 F L Pulse Rate 76 72 Respiratory Rate 20 19 Blood Pressure 151/76 H 131/66 Pulse Oximetry 93 90 L Oxygen Delivery Method 03/05/23 15:30 03/05/23 15:30 03/05/23 15:35 Temperature 97.0 F L Pulse Rate 73 Respiratory Rate 18 Blood Pressure 124/62 126/62 Pulse Oximetry 94 Oxygen Delivery Method 03/05/23 15:35 03/05/23 15:40 03/05/23 15:40 Temperature 96.8 F L 96.8 F L Pulse Rate 68 69 Respiratory Rate 15 15 Blood Pressure 133/67 Pulse Oximetry 91 91 Oxygen Delivery Method 03/05/23 15:45 03/05/23 15:45 03/05/23 15:50 Temperature 96.8 F L Pulse Rate 68 Respiratory Rate 15 Blood Pressure 131/70 127/66 Pulse Oximetry 93 Oxygen Delivery Method 03/05/23 15:50 03/05/23 15:55 03/05/23 15:55 Temperature 96.6 F L 96.6 F L Pulse Rate 72 69 Respiratory Rate 16 18 Blood Pressure 129/70 Pulse Oximetry 94 92 Oxygen Delivery Method 03/05/23 16:00 03/05/23 16:00 03/05/23 16:15 Temperature 96.6 F L Pulse Rate 71 Respiratory Rate 18 Blood Pressure 126/69 103/46 L Pulse Oximetry 93 Oxygen Delivery Method 03/05/23 16:15 03/05/23 16:16 Temperature 96.3 F L 96.3 F L Pulse Rate 62 60 Respiratory Rate 18 15 Blood Pressure Pulse Oximetry 95 96 Oxygen Delivery Method Oxygen Delivery Method Room Air Narrative Exam Narrative: GEN: Middle-aged female, Alert and oriented x3, lying on her right side, eyes closed, appears uncomfortable HEENT: Normocephalic, face symmetric, pupils equal round reactive to light, extraocular movements intact, nystagmus with leftward gaze, sclerae anicteric, conjunctiva clear, nares patent, oropharynx reveals an intact soft and hard palate with moist mucous membranes, dentition is fair NECK: Supple, no lymphadenopathy, thyroid without enlargement or nodularity, carotids no bruits CHEST: Respiratory excursions symmetric, clear to auscultation bilaterally CV: Regular rate and rhythm, no murmurs, rubs, gallops, PMI can not be palpated ABD: Soft, nontender, nondistended, bowel sounds present in all 4 quadrants, body habitus limits exam EXTR: Warm, well perfused, no clubbing/cyanosis/edema SKIN: Warm and dry, without rash NEURO: Alert and oriented x3, difficult to assess her neuro status fully as she is lying on her right side, eyes closed, and is not receptive to moving due to her symptoms PSYCH: Mood and affect is within normal limits, judgment and insight are fair to poor Objective Labs 03/05/23 11:30 03/05/23 12:10 Labs: Laboratory Results - last 24 hr 03/05/23 03/05/23 03/05/23 11:30 11:30 11:55 WBC 5.3 RBC 4.53 Hgb 14.2 Hct 41.8 MCV 92.3 MCH 31.3 MCHC 33.9 RDW 13.2 Plt Count 188 Neut % (Auto) 59.6 Lymph % (Auto) 26.9 [place] % (Auto) 6.5 Eos % (Auto) 5.6 H Baso % (Auto) 1.4 Neut # (Auto) 3200 Lymph # (Auto) 1400 [place] # (Auto) 300 Eos # (Auto) 300 Baso # (Auto) 100 PT 11.4 INR 1.0 APTT 25 L Sodium Potassium Chloride Carbon Dioxide BUN Creatinine Estimated GFR BUN/Creatinine Ratio Glucose Calcium Total Bilirubin AST ALT Alkaline Phosphatase Total Creatine Kinase CK-MB (CK-2) CK-MB (CK-2) Rel Index Troponin I Total Protein Albumin Globulin Albumin/Globulin Ratio Urine Color Urine Appearance Urine pH Ur Specific [place] Urine Protein Urine Glucose (UA) Urine Ketones Urine Occult Blood Urine Nitrate Urine Bilirubin Urine Urobilinogen Ur Leukocyte Esterase Urine RBC Urine WBC Urine Bacteria Ur Culture Indicated? U Opiates 300ng/mL cut Ur Oxycodone Screen Urine Methadone Screen Ur Barbiturates Screen U Tricyclic Antidepress Ur Phencyclidine Scrn Ur Amphetamines Screen U Methamphetamines Scrn Ur MDMA Scrn (Ecstasy) U Benzodiazepines Scrn Urine Cocaine Screen U Marijuana (THC) Screen Ethyl Alcohol SARS-CoV-2 (PCR) Negative 03/05/23 03/05/23 03/05/23 12:10 12:28 12:28 WBC RBC Hgb Hct MCV MCH MCHC RDW Plt Count Neut % (Auto) Lymph % (Auto) [place] % (Auto) Eos % (Auto) Baso % (Auto) Neut # (Auto) Lymph # (Auto) [place] # (Auto) Eos # (Auto) Baso # (Auto) PT INR APTT Sodium 136 L Potassium 3.9 Chloride 102 Carbon Dioxide 27 BUN 14 Creatinine 0.68 Estimated GFR > 60 BUN/Creatinine Ratio 20.6 Glucose 178 H Calcium 8.4 Total Bilirubin 0.4 AST 29 ALT 26 Alkaline Phosphatase 71 Total Creatine Kinase 159 H CK-MB (CK-2) TNP CK-MB (CK-2) Rel Index TNP Troponin I < 0.012 Total Protein 6.6 Albumin 3.9 Globulin 2.7 Albumin/Globulin Ratio 1.4 Urine Color Yellow Urine Appearance Clear Urine pH 7.0 Ur Specific [place] 1.010 Urine Protein Negative Urine Glucose (UA) Trace H Urine Ketones Negative Urine Occult Blood Negative Urine Nitrate Negative Urine Bilirubin Negative Urine Urobilinogen 0.2 Ur Leukocyte Esterase Negative Urine RBC 0-1/hpf Urine WBC 0-1/hpf Urine Bacteria None seen Ur Culture Indicated? Cult not indicated U Opiates 300ng/mL cut Negative Ur Oxycodone Screen Negative Urine Methadone Screen Negative Ur Barbiturates Screen Negative U Tricyclic Antidepress Negative Ur Phencyclidine Scrn Negative Ur Amphetamines Screen Negative U Methamphetamines Scrn Positive H Ur MDMA Scrn (Ecstasy) Negative U Benzodiazepines Scrn Negative Urine Cocaine Screen Negative U Marijuana (THC) Screen Negative Ethyl Alcohol < 10 SARS-CoV-2 (PCR) Assessment & Plan Assessment & Plan narrative: 1. Acute small left paramedian cerebellar intraparenchymal hematoma with adjacent edema Patient is admitted to the ICU for further monitoring. Her CT scan shows stable findings over the course of the day. Plan to monitor blood pressure and titrate for systolic pressures less than 160. No evidence of aneurysm or other vascular anomaly on her CT angio head and neck. She is not anticoagulated, does not take aspirin. Suspect the etiology is uncontrolled hypertension with the additive effect of methamphetamine use. We will continue NIH scores q.shift, neuro checks q.4. Will plan to treat her vertiginous symptoms with meclizine. I have deferred the use of a benzodiazepine given the need for monitoring her neuro status closely. I do have concern that it will be difficult to mobilize her with the severity of her symptoms in order to have her participate in therapies. PT and OT consultations have been requested. Discharge planning consult requested. Speech therapy consult was also requested, but they are not present for the holiday weekend. She did pass a bedside swallow evaluation performed by the ICU bedside nurse 2. Hypertension Uncontrolled. Initial pressures in the field were in the 220 systolic. It was down to the 170s in the ED. Nicardipine drip did bring her blood pressure is down to normal, but since it has been discontinued she has had some rebound. IV labetalol has been ordered for as needed use to keep systolic pressure is below 160. Most recent systolic pressure is documented at 159. She will need aggressive outpatient blood pressure control. I have counseled her that the use of methamphetamine in the setting of her hypertension creates a significantly increased risk of uncontrolled blood pressures. 3. Hyperglycemia Likely reactive. She is no history of diabetes. Will check a point of care glucose and send a hemoglobin A1c. 4. History of ischemic cerebrovascular accident No significant residual symptoms per patient. 5. Methamphetamine abuse Have counseled her on the importance of abstinence. 6. History of tobacco dependence She reports she quit smoking approximately 4 months ago. No need for nicotine replacement therapy. 7. Homelessness In the setting of her acute intraparenchymal hemorrhage, this certainly will pose a significant barrier for discharge. Code status Full Prophylaxis Chemical prophylaxis contraindicated in the setting of intracranial hemorrhage Disposition Admit to the intensive care unit. Will likely be able to downgrade to acute care tomorrow.
[2023-03-05 20:26] LABS: MRSA (Nasal) PCR Not Detected (Not Detect)
[2023-03-05] MEDS: SODIUM CHLORIDE 0.9% FLUSH 10 ML IV (21:08)
[2023-03-05] MEDS: MECLIZINE HCL 12.5 MG TABLET 25 MG PO (21:08)
[2023-03-06] VITALS (104 sets, daily range): BP systolic 138–215; BP diastolic 64–111; PULSE 63–92; RESP 12–33; TEMP 36.3–36.8; O2SAT 88–99
[2023-03-06] MEDS: LABETALOL 20 MG/4 ML SYRINGE IV (03:10)
[2023-03-06] MEDS: SODIUM CHLORIDE 0.9% FLUSH 10 ML IV ×3 (03:11→20:42)
[2023-03-06 05:21] LABS: Add Manual Diff / Slide Review NO; Basophils Absolute Auto 0 /uL (0-100); Basophils Percent Auto 0.2 % (0-2); Eosinophils Absolute Auto 100 /uL (0-450); Eosinophils Percent Auto 1.4 % (2-4); Hematocrit 41.5 % (36-46); Hemoglobin 14.1 g/dL (12.0-16.0); Lymphocytes Absolute Auto 1200 /uL (1100-4500); Lymphocytes Percent Auto 15.9 % (25-40); Mean Corpuscular Hemoglobin 31.2 PG (26-34); Mean Corpuscular Volume 91.7 fL (80-100); Monocytes Absolute Auto 500 /uL (0-900); Monocytes Percent Auto 7.3 % (3-14); Neutrophils Absolute Auto 5500 /uL (1500-7000); Neutrophils Percent Auto 75.2 % (50-75); Platelet Count 199 X10^3/uL (150-400); Red Blood Cell Count 4.52 X10^6/uL (4.0-5.2); White Blood Cell Count 7.3 X10^3/uL (4.5-11.0)
[2023-03-06 05:32] LABS: Blood Urea Nitrogen 15 mg/dL (7-17); Calcium 8.8 mg/dL (8.4-10.2); Carbon Dioxide 27 mmol/L (22-32); Chloride 104 mmol/L (98-107); Estimated Glomerular Filt Rate > 60 mL/min (>60); Glucose 118 mg/dL (70-100); HEMOLYSIS < 15 (0-50); Sodium 137 mmol/L (137-145)
--- NOTE | 2023-03-06 06:00 | DI.CT.S_ITS ---
PROCEDURE: CT HEAD/BRAIN WO CON INDICATIONS: Recheck cerebellar hematoma TECHNIQUE: Noncontrast 4.5 mm thick angled axial sections acquired from the foramen magnum to the vertex, with coronal and sagittal reformats. For radiation dose reduction, the following was used: automated exposure control, adjustment of mA and/or kV according to patient size. COMPARISON: [facility], CT, CT HEAD/BRAIN WO CON, 03/05/2023, 16:06. FINDINGS: Image quality: Excellent. CSF spaces: Basal cisterns are patent. No extra-axial fluid collections. The ventricles are symmetric in size and shape. Brain: No mass or mass effect. Redemonstration of left medial cerebellar hematoma which remains fairly stable in size now measuring 1.6 x 1.0 x 1.1 cm, previously 1.5 x 0.9 x 1.2 cm. Adjacent vasogenic edema is not significantly changed. Stable appearance of remote right basal ganglial lacunar infarct. There is cerebral volume loss for age, with resultant ventricular and sulcal prominence. There are periventricular and deep white matter chronic small vessel ischemic changes. There is intracranial internal carotid artery atherosclerosis. Skull and face: Calvarium and visualized facial bones appear intact, without suspicious lesions. Sinuses: Scattered ethmoid and bilateral maxillary sinus mucosal thickening. Bilateral mastoid air cells are clear. IMPRESSION: 1. No significant change to small left cerebellar hematoma with adjacent vasogenic edema. No evidence for increasing mass effect. 2. Scattered ethmoid and bilateral maxillary sinus disease. Dictated by: Jose Miguel Avilez M.D. on 03/06/2023 at 8:50 Approved by: Jose Miguel Avilez M.D. on 03/06/2023 at 8:54
[2023-03-06] MEDS: PANTOPRAZOLE DR 40 MG TABLET 20 MG PO (06:06)
[2023-03-06] MEDS: ACETAMINOPHEN 325 MG TABLET 650 MG PO (06:07)
--- NOTE | 2023-03-06 07:19 | PC.NURSE ---
[employer] Note-Upon 1st assessment patient was drowsy, forgetful, with slightly mumbled speech, but could make needs known. Meclizine given for dizziness and nausea. IV labetalol given for SBP >160 per prn order. By morning, patient A/Ox3, NIH 0, asking about breakfast, Tylenol given for headache.
[2023-03-06] MEDS: MECLIZINE HCL 12.5 MG TABLET 25 MG PO ×3 (08:26→20:42)
[2023-03-06] MEDS: LOSARTAN 50 MG TABLET PO (08:49)
--- NOTE | 2023-03-06 09:26 | PM.PN.1 ---
Subjective Subjective Interval history: 57 F admitted with cerebellar hematoma / intraparenchymal hemorrhage. No change in size on CT x3 now. Nausea is slightly improved this morning, only with dizziness when she turns her head far to either side. She has been off of cardene infusion for quite some time. Will upgrade diet and start oral antihypertensives, can downgrade to regular floor. Exam Vital Signs (past 8 hours): - 03/06/23 01:30 03/06/23 01:35 03/06/23 01:40 Temperature 98.1 F 98.1 F 97.9 F Pulse Rate 66 75 72 Respiratory Rate 14 15 14 Blood Pressure Pulse Oximetry 94 94 94 Oxygen Delivery Method 03/06/23 01:45 03/06/23 01:50 03/06/23 01:55 Temperature 97.9 F 97.9 F 97.9 F Pulse Rate 68 70 73 Respiratory Rate 14 15 15 Blood Pressure Pulse Oximetry 95 96 96 Oxygen Delivery Method 03/06/23 02:00 03/06/23 02:00 03/06/23 03:10 Temperature 97.7 F Pulse Rate 77 69 Respiratory Rate 17 Blood Pressure 139/67 184/88 H Pulse Oximetry 94 Oxygen Delivery Method 03/06/23 02:05 03/06/23 02:10 03/06/23 02:15 Temperature 97.7 F 97.7 F 97.7 F Pulse Rate 71 71 71 Respiratory Rate 16 16 16 Blood Pressure Pulse Oximetry 96 96 96 Oxygen Delivery Method 03/06/23 02:20 03/06/23 02:25 03/06/23 02:30 Temperature 97.7 F 97.7 F 97.7 F Pulse Rate 71 72 71 Respiratory Rate 16 16 15 Blood Pressure Pulse Oximetry 96 96 97 Oxygen Delivery Method 03/06/23 02:35 03/06/23 02:40 03/06/23 02:45 Temperature 97.7 F 97.7 F 97.7 F Pulse Rate 74 74 70 Respiratory Rate 15 16 15 Blood Pressure Pulse Oximetry 97 96 95 Oxygen Delivery Method 03/06/23 02:50 03/06/23 02:55 03/06/23 03:00 Temperature 97.7 F 97.7 F Pulse Rate 74 78 Respiratory Rate 17 16 Blood Pressure 184/88 H Pulse Oximetry 97 96 Oxygen Delivery Method 03/06/23 03:00 03/06/23 03:05 03/06/23 03:10 Temperature 97.9 F 97.9 F 97.9 F Pulse Rate 80 88 72 Respiratory Rate 15 20 17 Blood Pressure Pulse Oximetry 96 94 93 Oxygen Delivery Method 03/06/23 03:15 03/06/23 03:20 03/06/23 03:25 Temperature 97.7 F 97.7 F 97.7 F Pulse Rate 75 72 65 Respiratory Rate 22 29 H 24 Blood Pressure Pulse Oximetry 95 91 93 Oxygen Delivery Method 03/06/23 03:30 03/06/23 03:35 03/06/23 03:40 Temperature 97.7 F 97.5 F L 97.5 F L Pulse Rate 66 68 68 Respiratory Rate 15 25 H 23 Blood Pressure Pulse Oximetry 93 93 93 Oxygen Delivery Method 03/06/23 03:45 03/06/23 03:50 03/06/23 03:55 Temperature 97.5 F L 97.5 F L 97.7 F Pulse Rate 69 66 68 Respiratory Rate 21 15 15 Blood Pressure Pulse Oximetry 94 95 96 Oxygen Delivery Method 03/06/23 04:00 03/06/23 04:15 03/06/23 04:00 Temperature 97.7 F Pulse Rate 78 65 Respiratory Rate 22 Blood Pressure 145/71 H Pulse Oximetry 95 Oxygen Delivery Method Room Air 03/06/23 04:01 03/06/23 04:01 03/06/23 04:05 Temperature 97.7 F 97.7 F Pulse Rate 66 66 Respiratory Rate 16 15 Blood Pressure 145/71 H Pulse Oximetry 95 95 Oxygen Delivery Method 03/06/23 04:10 03/06/23 04:15 03/06/23 04:20 Temperature 97.7 F 97.7 F 97.3 F L Pulse Rate 68 67 72 Respiratory Rate 16 16 25 H Blood Pressure Pulse Oximetry 93 95 95 Oxygen Delivery Method 03/06/23 04:25 03/06/23 04:30 03/06/23 04:35 Temperature 97.5 F L 97.5 F L 97.5 F L Pulse Rate 69 76 63 Respiratory Rate 21 33 H 16 Blood Pressure Pulse Oximetry 96 95 94 Oxygen Delivery Method 03/06/23 04:40 03/06/23 04:45 03/06/23 04:50 Temperature 97.7 F 97.7 F 97.7 F Pulse Rate 64 64 75 Respiratory Rate 16 16 17 Blood Pressure Pulse Oximetry 96 96 94 Oxygen Delivery Method 03/06/23 04:55 03/06/23 05:00 03/06/23 05:00 Temperature 97.7 F 97.9 F Pulse Rate 73 71 Respiratory Rate 15 15 Blood Pressure 201/93 H Pulse Oximetry 97 98 Oxygen Delivery Method 03/06/23 05:05 03/06/23 05:10 03/06/23 05:15 Temperature 97.9 F 97.9 F 98.1 F Pulse Rate 68 65 76 Respiratory Rate 16 18 15 Blood Pressure Pulse Oximetry 97 95 99 Oxygen Delivery Method 03/06/23 05:20 03/06/23 05:25 03/06/23 05:30 Temperature 98.1 F 98.1 F 98.2 F Pulse Rate 84 75 71 Respiratory Rate 16 16 14 Blood Pressure Pulse Oximetry 91 98 96 Oxygen Delivery Method 03/06/23 05:34 03/06/23 05:34 03/06/23 05:35 Temperature 98.2 F 98.2 F Pulse Rate 76 69 Respiratory Rate 18 16 Blood Pressure 161/77 H Pulse Oximetry 96 97 Oxygen Delivery Method 03/06/23 05:40 03/06/23 05:45 03/06/23 05:50 Temperature 98.2 F 98.2 F 98.2 F Pulse Rate 67 69 72 Respiratory Rate 16 17 17 Blood Pressure Pulse Oximetry 96 96 96 Oxygen Delivery Method 03/06/23 05:55 03/06/23 06:00 03/06/23 06:01 Temperature 98.2 F 98.1 F Pulse Rate 72 72 Respiratory Rate 17 17 Blood Pressure 162/76 H Pulse Oximetry 95 95 Oxygen Delivery Method 03/06/23 06:01 03/06/23 06:05 03/06/23 06:10 Temperature 98.1 F 98.1 F 98.1 F Pulse Rate 73 71 70 Respiratory Rate 16 24 14 Blood Pressure Pulse Oximetry 96 95 97 Oxygen Delivery Method 03/06/23 06:15 03/06/23 06:20 03/06/23 06:25 Temperature 98.1 F 97.9 F 98.1 F Pulse Rate 70 64 68 Respiratory Rate 15 14 12 Blood Pressure Pulse Oximetry 96 97 98 Oxygen Delivery Method 03/06/23 06:30 03/06/23 06:35 03/06/23 06:40 Temperature 98.1 F 97.9 F 97.9 F Pulse Rate 79 72 72 Respiratory Rate 26 H 18 23 Blood Pressure Pulse Oximetry 95 95 97 Oxygen Delivery Method 03/06/23 06:45 03/06/23 06:50 03/06/23 06:55 Temperature 97.9 F 97.9 F 97.9 F Pulse Rate 68 72 78 Respiratory Rate 21 14 17 Blood Pressure Pulse Oximetry 97 97 97 Oxygen Delivery Method 03/06/23 07:00 03/06/23 07:00 03/06/23 07:05 Temperature 97.9 F 97.9 F Pulse Rate 72 69 Respiratory Rate 17 17 Blood Pressure 155/74 H Pulse Oximetry 96 96 Oxygen Delivery Method 03/06/23 07:10 03/06/23 07:15 03/06/23 07:20 Temperature 97.9 F 97.7 F 97.7 F Pulse Rate 74 75 73 Respiratory Rate 14 19 19 Blood Pressure Pulse Oximetry 96 96 96 Oxygen Delivery Method 03/06/23 07:25 03/06/23 07:30 03/06/23 07:35 Temperature 97.7 F 97.5 F L 97.5 F L Pulse Rate 74 71 69 Respiratory Rate 16 16 16 Blood Pressure Pulse Oximetry 95 95 95 Oxygen Delivery Method 03/06/23 07:40 03/06/23 07:45 03/06/23 07:50 Temperature 97.3 F L 97.3 F L 97.3 F L Pulse Rate 70 71 69 Respiratory Rate 17 16 18 Blood Pressure Pulse Oximetry 96 96 92 Oxygen Delivery Method 03/06/23 07:55 03/06/23 08:00 03/06/23 08:00 Temperature 97.3 F L 97.3 F L Pulse Rate 68 76 Respiratory Rate 19 17 Blood Pressure 215/111 H Pulse Oximetry 95 98 Oxygen Delivery Method 03/06/23 08:05 03/06/23 08:42 Temperature 97.5 F L Pulse Rate 74 Respiratory Rate 17 Blood Pressure Pulse Oximetry 98 Oxygen Delivery Method Room Air Oxygen Delivery Method Room Air Narrative Exam Narrative: GEN: Middle-aged female, Alert and oriented x3, no acute distress HEENT: Normocephalic, face symmetric, pupils equal round reactive to light NECK: Supple, no lymphadenopathy, thyroid without enlargement or nodularity, carotids no bruits CHEST: Respiratory excursions symmetric, clear to auscultation bilaterally CV: Regular rate and rhythm, no murmurs, rubs, gallops, PMI can not be palpated ABD: Soft, nontender, nondistended EXTR: Warm, well perfused, no clubbing/cyanosis/edema SKIN: Warm and dry, without rash NEURO: Alert and oriented x3, strength +5/5 in all extremities PSYCH: Mood and affect is within normal limits Objective Labs 03/06/23 04:15 03/06/23 04:15 Labs: Laboratory Results - last 24 hr 03/05/23 03/05/23 03/05/23 11:30 11:30 11:55 WBC 5.3 RBC 4.53 Hgb 14.2 Hct 41.8 MCV 92.3 MCH 31.3 MCHC 33.9 RDW 13.2 Plt Count 188 Neut % (Auto) 59.6 Lymph % (Auto) 26.9 [place] % (Auto) 6.5 Eos % (Auto) 5.6 H Baso % (Auto) 1.4 Neut # (Auto) 3200 Lymph # (Auto) 1400 [place] # (Auto) 300 Eos # (Auto) 300 Baso # (Auto) 100 PT 11.4 INR 1.0 APTT 25 L Sodium Potassium Chloride Carbon Dioxide BUN Creatinine Estimated GFR BUN/Creatinine Ratio Glucose Calcium Total Bilirubin AST ALT Alkaline Phosphatase Total Creatine Kinase CK-MB (CK-2) CK-MB (CK-2) Rel Index Troponin I Total Protein Albumin Globulin Albumin/Globulin Ratio Urine Color Urine Appearance Urine pH Ur Specific [place] Urine Protein Urine Glucose (UA) Urine Ketones Urine Occult Blood Urine Nitrate Urine Bilirubin Urine Urobilinogen Ur Leukocyte Esterase Urine RBC Urine WBC Urine Bacteria Ur Culture Indicated? Nasal Screen MRSA (PCR) U Opiates 300ng/mL cut Ur Oxycodone Screen Urine Methadone Screen Ur Barbiturates Screen U Tricyclic Antidepress Ur Phencyclidine Scrn Ur Amphetamines Screen U Methamphetamines Scrn Ur MDMA Scrn (Ecstasy) U Benzodiazepines Scrn Urine Cocaine Screen U Marijuana (THC) Screen Ethyl Alcohol SARS-CoV-2 (PCR) Negative 03/05/23 03/05/23 03/05/23 12:10 12:28 12:28 WBC RBC Hgb Hct MCV MCH MCHC RDW Plt Count Neut % (Auto) Lymph % (Auto) [place] % (Auto) Eos % (Auto) Baso % (Auto) Neut # (Auto) Lymph # (Auto) [place] # (Auto) Eos # (Auto) Baso # (Auto) PT INR APTT Sodium 136 L Potassium 3.9 Chloride 102 Carbon Dioxide 27 BUN 14 Creatinine 0.68 Estimated GFR > 60 BUN/Creatinine Ratio 20.6 Glucose 178 H Calcium 8.4 Total Bilirubin 0.4 AST 29 ALT 26 Alkaline Phosphatase 71 Total Creatine Kinase 159 H CK-MB (CK-2) TNP CK-MB (CK-2) Rel Index TNP Troponin I < 0.012 Total Protein 6.6 Albumin 3.9 Globulin 2.7 Albumin/Globulin Ratio 1.4 Urine Color Yellow Urine Appearance Clear Urine pH 7.0 Ur Specific [place] 1.010 Urine Protein Negative Urine Glucose (UA) Trace H Urine Ketones Negative Urine Occult Blood Negative Urine Nitrate Negative Urine Bilirubin Negative Urine Urobilinogen 0.2 Ur Leukocyte Esterase Negative Urine RBC 0-1/hpf Urine WBC 0-1/hpf Urine Bacteria None seen Ur Culture Indicated? Cult not indicated Nasal Screen MRSA (PCR) U Opiates 300ng/mL cut Negative Ur Oxycodone Screen Negative Urine Methadone Screen Negative Ur Barbiturates Screen Negative U Tricyclic Antidepress Negative Ur Phencyclidine Scrn Negative Ur Amphetamines Screen Negative U Methamphetamines Scrn Positive H Ur MDMA Scrn (Ecstasy) Negative U Benzodiazepines Scrn Negative Urine Cocaine Screen Negative U Marijuana (THC) Screen Negative Ethyl Alcohol < 10 SARS-CoV-2 (PCR) 03/05/23 03/06/23 03/06/23 17:36 04:15 04:15 WBC 7.3 RBC 4.52 Hgb 14.1 Hct 41.5 MCV 91.7 MCH 31.2 MCHC 34.0 RDW 13.0 Plt Count 199 Neut % (Auto) 75.2 H Lymph % (Auto) 15.9 L [place] % (Auto) 7.3 Eos % (Auto) 1.4 L Baso % (Auto) 0.2 Neut # (Auto) 5500 Lymph # (Auto) 1200 [place] # (Auto) 500 Eos # (Auto) 100 Baso # (Auto) 0 PT INR APTT Sodium 137 Potassium 4.0 Chloride 104 Carbon Dioxide 27 BUN 15 Creatinine 0.75 Estimated GFR > 60 BUN/Creatinine Ratio 20.0 Glucose 118 H Calcium 8.8 Total Bilirubin AST ALT Alkaline Phosphatase Total Creatine Kinase CK-MB (CK-2) CK-MB (CK-2) Rel Index Troponin I Total Protein Albumin Globulin Albumin/Globulin Ratio Urine Color Urine Appearance Urine pH Ur Specific [place] Urine Protein Urine Glucose (UA) Urine Ketones Urine Occult Blood Urine Nitrate Urine Bilirubin Urine Urobilinogen Ur Leukocyte Esterase Urine RBC Urine WBC Urine Bacteria Ur Culture Indicated? Nasal Screen MRSA (PCR) Not detected U Opiates 300ng/mL cut Ur Oxycodone Screen Urine Methadone Screen Ur Barbiturates Screen U Tricyclic Antidepress Ur Phencyclidine Scrn Ur Amphetamines Screen U Methamphetamines Scrn Ur MDMA Scrn (Ecstasy) U Benzodiazepines Scrn Urine Cocaine Screen U Marijuana (THC) Screen Ethyl Alcohol SARS-CoV-2 (PCR) [facility] Medical History (Updated 03/05/23 @ 17:44 by Michoacano Taylor DO) Hypertension Assessment & Plan Assessment & Plan narrative: 1. Acute small left paramedian cerebellar intraparenchymal hematoma with adjacent edema -Suspect the etiology is uncontrolled hypertension with the additive effect of methamphetamine use. -continue meclizine q8 scheduled -work on BP control today as noted below, will need adequate control prior to discharge given intraparenchymal hemorrhage. -PT / OT -CT head x3 now with stable appearance. No further imaging unless neurological status change. 2. Hypertensive emergency, present on admission - start losartan 50 mg daily, with reassessment today with probable need for more antihypertensives. -was briefly on nicardipine infusion in the ICU, now downgraded 3. Hyperglycemia, improved Likely reactive. She is no history of diabetes. improved glucose today, A1c pending (send out) 4. History of ischemic cerebrovascular accident No significant residual symptoms per patient. 5. Methamphetamine abuse Have counseled her on the importance of abstinence. 6. History of tobacco dependence She reports she quit smoking approximately 4 months ago. No need for nicotine replacement therapy. 7. Homelessness In the setting of her acute intraparenchymal hemorrhage, this certainly will pose a significant barrier for discharge if she needs continued rehabilitation. Code status Full Prophylaxis Chemical prophylaxis contraindicated in the setting of intracranial hemorrhage Disposition Acute care floor, pending PT/OT evaluation. Likely medically stable in 1-2 days with improvement in hypertension
--- NOTE | 2023-03-06 10:08 | CM.DANOTE ---
Patient is a 57 yo female who was admitted on 03/05/23 for Poss TIA/Stroke. Pt has [employer] and [employer] for insurance and no PCP. EMR was reviewed. Per MD, pt with hx of TIA and methamphetamine use and admitted for hypertension, cerebellar hematoma, and UDS+ meth. PT/OT/ST ordered and pending. SW met bedside with pt and explained role and pt confirms that her mailing address is [place] but is currently homeless and has been staying and different friends' places and couch surfing. Pt confirms she is independent at baseline with ADLs, does not use DME for ambulation, currently relies on others for transportation. Pt states she is not established with PCP and preference would be [facility] to establish care. Pt confirms she uses meth on occasion as she has PTSD and is afraid of the dark and takes meth to stay awake. Pt states she was established with a counselor and tried medication to help with sleep but states it made her groggy and did not seem to help. Pt denies any MARLENE/meth tx resources. Pt is aware of housing resources and [facility]cc options and confirms that she can d/c to her local friend's house in [place] and friend can transport. Pt would be open to a referral for a community product specialist and SW made initial referral to [facility] to see if pt will qualify for additional assist with coordinating care after discharge. Plan: SW to follow for PT/OT/ST eval and recommendations to confirm pt is safe for d/c home to friend's house via friend POV and any further identified discharge planning needs. ADRIENNE Johnson Discharge Planning/Care Management CM Discharge Assessment Start: 03/06/23 09:39 Freq: Status: Active Protocol: Document 03/06/23 09:39 BF (Rec: 03/06/23 09:40 BF [id number]) Discharge Planning Assessment Assigned Striker Out ADRIENNE Jacobs DPOA/Assigned Designee Name informally parents Advance Directives? No Advance Directives on File No History Provided By Patient,Medical Record Has Patient been admitted in last 30 No days? Prior Living Arrangements Homeless Comment pt has been couch surfing Household Members none Type of transporation used prior to Relies on Others admit Independent with ADL's Yes Is patient alert and oriented? Yes Caregiver for Another No Barriers to Discharge No Discharge Plan Home Transportation Arrangement Local [place] friend to provide transport Referrals Initiated None needed Additional Comment Pending PT/OT eval today Whiteboard Updated in Patient Room with Yes name and ext. # of Striker Out Review Status In Process Please Provide Date Initial DC 03/06/23 Assessment Was Performed Next Review Type Continued Stay Review
--- NOTE | 2023-03-06 11:15 | ST.IPIE ---
Visit Care Team Role Provider Type Michoacano Taylor DO Emergency Provider Physician Referring Provider Specialty: Emergency Medicine Address: [address] [place] [address], [id number] Email: [email or web address] Anjali Murdock MD Admit Provider Physician Attending Provider Specialty: Family Practice Address: [address] [place] [address], [id number] Phone: Fax: Email: [email or web address] Current Diagnoses Nontraumatic intracerebral hemorrhage in cerebellum (03/05/23) Past Medical History (Last Updated 03/05/23 @ 16:57 by Kasey Lo RN) Hypertension (Medical) ST IP Initial Evaluation Report LEAD SYSTEMS ARCHITECT Motor Speech Evaluation Start: 03/06/23 11:09 Freq: Status: Active Protocol: Document 03/06/23 11:09 MG (Rec: 03/06/23 11:15 MG [id number]) Motor Speech Evaluation Session Time Visit Start Time 10:45 Visit Stop Time 11:05 Total Visit Minutes 20 Visit Information Visit Number 1 Setting Setting Acute Care Patient History Source: [employer] ([facility]). Patient History Per H&P: Pt is a 57-year-old female with history of previous ischemic stroke 2 years ago, intermittent TIAs, hypertension (presently off of her prescribed lisinopril), tobacco dependence, methamphetamine abuse, and current homelessness presented to the emergency department with acute onset of difficulty walking, slurred speech, and word-finding difficulty. She notes she got up to go to the bathroom and kept falling to the side. She was staying at a friend's house and notes they were drinking alcohol last evening, but she states she did not drink very much. Due to her symptoms, EMS was called. When they arrived, they found her with a fixed rightward gaze, difficulty with speech, and initial blood pressures of 220/140. Prior to arrival in the emergency department, her symptoms began improving. Her blood pressure also improved to 170s over 120s. Initial CT scan revealed a small acute left paramedian cerebellar parenchymal hematoma. Changes of mild chronic small-vessel ischemia in the cerebral white matter. CTA of the head and neck revealed redemonstration of the left paramedian cerebellar intraparenchymal hemorrhage, no evidence of aneurysm, normal intracranial arterial circulation, moderate noncalcified left proximal ICA stenosis 50-69%. Normal vertebral artery system. Chest x-ray was performed and revealed no acute cardiopulmonary process. Patient's blood pressures normalized while on the nicardipine. Follow-up head CT was performed with no change to the small left cerebellar hematoma and adjacent edema were noted. Patient is now admitted to the intensive care unit. She is having some elevated blood pressure after being weaned off of the nicardipine drip. She can is of significant nausea and vertiginous symptoms with any movement. She is lying on her right side with her eyes closed. She denies any residual speech deficits. No tingling or numbness. No weakness. NIH score is presently 1. She tells me she last used methamphetamine 2 nights ago. She states she is afraid of the dark and has been couch surfing and therefore uses methamphetamine to help her stay awake. She describes using intermittently rather than daily. She notes that she was supposed to get her lisinopril refilled but the physician never sent it in so she failed to follow up on it. Mental Status Mental Status Alert,Responsive,Cooperative, Lethargic Subjective Observations Subjective Pt was resting in bed when LEAD SYSTEMS ARCHITECT entered the room. Pt was arousable and agreeable to speech/swallow evaluation. Oral Motor Lips Function WFL Tongue Function WFL Observations at rest Dentures in place; both top and bottom Jaw Function WFL Soft Palate Function WFL Respiration/Phonation Conversation Quality WFL Duration WFL Function WFL Loudness WFL Diadochokinetic Rates Speech Intelligibility Conversation Severity WFL Awareness/Strategy Use Findings Details Motor Speech Function WFL Assessment Details Assessment Pt does not present with speech difficulties at this time and does not require therapy. Per the pt, she has no concerns with speech or swallowing. Oral functions are WFL and laryngeal palpation was WFL. Pt was 100% intelligible in conversation, followed directions and answered questions appropriately. Recommend to discharge home. Recommendations Treatment Recommended No Patient/Family Education Education Described results of evaluation,Patient Understanding
--- NOTE | 2023-03-06 13:46 | OT.IP.EVAL ---
Current Diagnoses Nontraumatic intracerebral hemorrhage in cerebellum (03/05/23) Past Medical History (Last Updated 03/05/23 @ 16:57 by Kasye Lo RN) Hypertension Occupational Therapy Inpatient Evaluation/Re-Eval M1 PT/OT-IP Prior Functional Status Start: 03/06/23 09:17 Freq: NEEDED Status: Active Protocol: Document 03/06/23 14:39 CGR (Rec: 03/06/23 15:02 CGR [id number]) Medical Review Prior Functional Status Medical History Reviewed Yes Communication Pt is an effective verbal communicator. Mobility and Gait Pt was IND in all functional mobility at baseline without AD. Activities of Daily Living and IADL's Pt was IND in all ADLs at baseline without AD Prior Functional Level (Other details) Pt is currently homeless and staying with a friend. Information obtained below is for her friends home. 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 Social History Household Members none Living Arrangements House Number of Floors (Floors) One Floor Number of Stairs To Enter/Railing? 2 steps with L assending rail. 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 M2 OT-IP Current Condition Start: 03/06/23 14:38 Freq: Status: Active Protocol: Document 03/06/23 14:39 CGR (Rec: 03/06/23 15:02 CGR [id number]) Occupational Therapy Current Condition Current Condition Evaluation Date 03/06/23 Treatment Diagnosis acute small L paramedian cerebellur infarct Diagnosis Onset Date 03/05/23 M3 OT- IP Subjective and Pain Start: 03/06/23 14:38 Freq: Status: Active Protocol: Document 03/06/23 14:39 CGR (Rec: 03/06/23 15:02 CGR [id number]) OT- Subjective Occupational Therapy Visit Type Type Initial Evaluation Visit Start Time 13:27 Visit Stop Time 13:46 Total Visit Minutes 19 OT Pain Assessment Pain When Pain Assessed At Rest Pain Present Pain Present Denied Pain M4 OT- IP ADL's Start: 03/06/23 14:38 Freq: Status: Active Protocol: Document 03/06/23 14:39 CGR (Rec: 03/06/23 15:02 R [id number]) OT [id number] Comments OT Self-Feeding Comments not meal time OT ADL-Grooming Comments OT Grooming Comments pt declined to perform OT ADL-Oral Care Comments Oral Care Comments pt declined to perform OT ADL-Dressing General Eval Lower Body Dressing Ability Independent Areas Needing Assistance Socks Comments OT Dressing Comments seated EOB OT ADL-Toileting General Evaluation Toileting Ability Independent Comments OT Toileting Comments seated on toielt OT ADL-Bathing Comments OT Bathing Comments not performed M5 OT- IP IADL's Start: 03/06/23 14:38 Freq: Status: Active Protocol: Document 03/06/23 14:39 CGR (Rec: 03/06/23 15:02 R [id number]) OT-Instrumental Activities of Daily Living Deficits IADL Deficits Identified No Deficits Home Safety Awareness Awareness of Need for Assistance at Home Good Awareness Ability to Problem Solve Emergency Able to Problem Solve Situations Medication Management Medication Management No Deficits Identified Money Management Money Management No Deficits Identified Meal Preparation Meal Preparation Caregiver Provides Assist Audio Production Engineer Audio Production Engineer Caregiver Provides Assist Driving Driving Comments Pt states she understands that she should not drive at this time. M6 OT- IP Functional Cognition Start: 03/06/23 14:38 Freq: Status: Active Protocol: Document 03/06/23 14:39 CGR (Rec: 03/06/23 15:02 R [id number]) Cognitive Factors Limiting Selfcare Function Cognitive Ability Level of Alertness Alert Patient Orientation Name,Age,Birthday,Month,Date, Year,Day of Week,Place, Situation Attention Span Ability Capable of Focused Attention, Capable of Sustained Attention Ability to Follow Commands Able to Follow Multi-Step Commands OT- Vision and Hearing OT- Hearing Assessment OT- Hearing Assessment WFL OT- Vision Assessment Visual Acuity WFL Visual Attentiveness WFL Occular Pursuits WFL Visual Convergence WFL Vision Assessment Comments Pt states the R eye is light sensitive and that if she closes the right eye her dizziness improves M7 OT- IP Mobility and Balance Start: 03/06/23 14:38 Freq: Status: Active Protocol: Document 03/06/23 14:39 CGR (Rec: 03/06/23 15:02 R [id number]) OT- Bed Mobility Assessment Supine to Sit Supine to Sit Assist Independent Scooting Scooting to Edge of Bed Independent OT-Transfer Assessment Sit to and From Stand Sit to and from Stand Standby Assistance Transfers Transfer Ability Standby Assistance Technique Transfer Destination Bed,Chair,Toilet Transfer Technique Stand Step Pivot Devices Transfer Assistive Devices Gait Belt OT- Gait Assessment Gait Gait Assistance Required: Standby Assistance Assistive Devices Assistive Device Gait Belt OT- Balance Assessment Sitting Balance and Reactions Static Sitting Balance Ability Normal Dynamic Sitting Balance Ability Good M8 OT- IP Objective Assessments Start: 03/06/23 14:38 Freq: Status: Active Protocol: Document 03/06/23 14:39 CGR (Rec: 03/06/23 15:02 CGR [id number]) OT Gross Range of Motion Upper Extremity Range of Motion Assessment Within Functional Limits OT Strength Upper Extremity Strength Assessment Within Functional Limits Comments Strength Comments 4/5 OT- Coordination Assessment Upper Extremity Finger to Nose Test Within Functional Limits Finger Tapping Test Within Functional Limits OT-Muscle Tone Assessment Muscle Tone WNL Yes OT Sensation Assessment Edema Edema Absent M9 OT- IP Assessment and Plan Start: 03/06/23 14:38 Freq: Status: Active Protocol: Document 03/06/23 14:39 CGR (Rec: 03/06/23 15:02 CGR [id number]) OT Summary Assessment and Plan Potential Rehabilitation Potential Good Analytic Complexity at Evaluation Low Summary OT Impairments Balance,Activity Tolerance Progress Towards Goals Goals Met Assessment Summary Pt presents as a low complexity evaluation s/p admit for CVA. Pt describes dizziness with movement but is able to perform her ADLs. Will defer functional mobility to P.T. No further OT needs. Frequency of Treatment Frequency Of Treatment Discharge Discharge Recommendations OT Discharge Recommendations Home Transportation Needs at Discharge Private Vehicle
--- NOTE | 2023-03-06 14:37 | PT.IIE ---
Current Diagnoses Nontraumatic intracerebral hemorrhage in cerebellum (03/05/23) Medical History (Last Updated 03/05/23 @ 16:57 by Kasey Lo RN) Hypertension Physical Therapy Inpatient Evaluation/Re-Eval M1 PT/OT-IP Prior Functional Status Start: 03/06/23 09:17 Freq: NEEDED Status: Active Protocol: Document 03/06/23 14:37 AW (Rec: 03/06/23 14:58 AW [id number]) Medical Review Prior Functional Status Medical History Reviewed Yes Communication WNL. Pt is an effective verbal communicator. Mobility and Gait Independent without AD. Activities of Daily Living and IADL's Independent. Prior Functional Level (Other details) Pt reports new onset dizziness yesterday morning. Symptoms lasted for a few hours, have come and gone, but always last more than a few minutes. Social History Household Members none Living Arrangements Homeless Number of Floors (Floors) One Floor Number of Stairs To Enter/Railing? 2 [place] with railing Additional Social History Comment Pt is currently staying with a friend in [place]. She describes herself as couch surfing. Home details here refer to her friend's house. M2 PT-IP Current Condition Start: 03/06/23 09:17 Freq: NEEDED Status: Active Protocol: Document 03/06/23 14:37 AW (Rec: 03/06/23 14:58 AW [id number]) Physical Therapy Current Condition Current Condition Evaluation Date 03/06/23 Treatment Diagnosis L cerebellar hematoma; dizziness; impaired mobility and gait Onset Date 03/05/23 M3 PT-IP Subjective Start: 03/06/23 09:17 Freq: NEEDED Status: Active Protocol: Document 03/06/23 14:37 AW (Rec: 03/06/23 14:58 AW [id number]) Subjective Physical Therapy Visit Type Type Initial Evaluation Visit Start Time 14:18 Visit Stop Time 14:37 Total Visit Minutes 19 Physical Therapy Visit Comments Patient Comments Pt is willing to participate with PT. She reports resolution of her symptoms except when turning her head to end range either direction. Therapy Pain Assessment Pain When Pain Assessed During Mobility Pain Present Pain Present Denied Pain M4 PT-IP Mobility and Gait Start: 03/06/23 09:17 Freq: NEEDED Status: Active Protocol: Document 03/06/23 14:37 AW (Rec: 03/06/23 14:58 AW [id number]) PT-Bed Mobility Assessment Supine to Sit Supine to Sit Independent Sit to Supine Sit to Supine Independent PT-Transfer Assessment Sit to and From Stand Sit to and from Stand Independent Equipment Transfer Assistive Device None Orthotic/Prosthetic Devices or Brace: No Transfers Transfer Destination Bed,Chair Transfer Technique Stand Step Pivot Transfer Ability Level of Assist Independent Comments Mobility Comments Pt was sitting up in the chair as PT arrived. BP at rest was 172/90 HR 76. Pt participated in neuro screen and then stood, transferring to the bed without report of dizziness. She stood up again and walked around the unit before returning to the chair. VS after activity were BP 164/85 HR 82. Gait Assessment Gait Gait Assistance Required: Standby Assistance Distance (Feet) 200 Assistive Devices Assistive Device None,Gait Belt Orthotic/Prosthetic Devices or Brace: No Gait Deviations General Gait Pattern Decreased Stride Length, Lateral Trunk Lean,Wide Based Gait Factors Limiting Gait Function Factors Limiting Gait Function Poor Balance Comments Gait Comments Pt was able to ambulate around the unit SBA without dizziness. PT cued pt for gaze stabilization throughout and pt had no LOB. Stair Climbing Assessment Evaluation Level of Assist On Stairs Standby Assistance Devices Stair Climbing Assistive Devices Right Railing Technique/Endurance Stair Climbing Direction Ascend and Descend Stair Climbing Technique Step Over Step Number of Steps Climbed 10 Query Text: Stair Climbing Set # Repetitions (reps) 1 PT-Balance Assessment Sitting Balance and Reactions Static Sitting Balance Ability Normal Dynamic Sitting Balance Ability Normal Standing Balance and Reactions Static Standing Balance Ability Good Dynamic Standing Balance Ability Good Device Used no AD M5 PT-IP Objective Assessments Start: 03/06/23 09:17 Freq: NEEDED Status: Active Protocol: Document 03/06/23 14:37 AW (Rec: 03/06/23 14:58 AW [id number]) Orientation Orientation/Cognition Level of Alertness Alert Orientation Name,Day of Week,Place, Situation Language Function Ability No Deficits Noted Safety Awareness Understands Safety Issues Gross Range of Motion Upper Extremity ROM Assessment Within Functional Limits Lower Extremity ROM Assessment Within Functional Limits Strength Upper Extremity Strength Assessment Within Functional Limits Lower Extremity Strength Assessment Within Functional Limits Coordination Assessment Gross Coordination Gross Coordination WNL Assessment Finger to Nose Test Normal Performance Pronation/Supination Test Normal Performance Foot Tapping Test Normal Performance Sensation Assessment Sensation Gross Sensation WNL Muscle Tone Muscle Tone WNL Yes Other Assessments Other Other Assessments Oculomotor and vestibular screens were grossly normal. Smooth pursuits and saccades were WNL. Pt does report mild dizziness and slight blurring of vision with head turn to right end range. M6 PT-IP Treatment Start: 03/06/23 09:17 Freq: NEEDED Status: Active Protocol: Document 03/06/23 14:37 AW (Rec: 03/06/23 14:58 AW [id number]) Physical Therapy Treatment Education Education Provided Safety M7 PT-IP Assessment and Plan Start: 03/06/23 09:17 Freq: NEEDED Status: Active Protocol: Document 03/06/23 14:37 AW (Rec: 03/06/23 14:58 AW [id number]) PT Summary Assessment and Plan Potential Rehabilitation Potential Good Status of Condition at Evaluation Evolving Summary Impairments Balance,Gait Assessment Summary Patricia is a 57 yo woman admitted with concern for stroke-like symptoms. CT reveals small left cerebellar hematoma with adjacent vasogenic edema which has been stable on 2 repeat images . PMH includes CVA, TIA, HTN, tobacco dependence, and methamphetamine use. Pt is homeless and currently staying with a friend. She is independent in all regards at baseline. CLOF: Pt was found resting in the chair. VS were assessed as above (see Mobility) with stable hypertension being the only significant factor. Neuro screen was unremarkable with equal strength bilaterally, no impaired sensation, and no apparent coordination deficits . She is mobilizing with no more than SBA but does benefit from cues for gaze stabilization during transfers and gait. Ocular motor and vestibular screens were unremarkable and PT was unable to elicit dizziness symptoms except when pt turned her head maximally to the right. In that instance, symptoms resolved quickly. No nystagmus was observed in primary, left , or right gaze. Pt was educated to follow up with outpatient vestibular PT if symptoms persist at discharge. No acute PT needs are identified. Please re-consult if mobility status deteriorates. Frequency of Treatment Frequency Of Treatment Discharge Recommendations To Nursing Amount of Assist Needed Standby Assistance Discharge Recommendations PT Discharge Recommendations Home with Assistance, Outpatient PT Transportation Needs at Discharge Private Vehicle
[2023-03-07] VITALS: BP 205/101; PULSE 102; RESP 18; TEMP 36.4; O2SAT 91
--- NOTE | 2023-03-07 00:31 | PC.NURSE ---
Night Note-Resumed care of patient at midnight, BP 259/116 Rt arm, 205/101 Lt arm, HR 102, has been SR. Notified Dr. Rodriguez, will order Labetalol prn.
[2023-03-07 00:53] VITALS: BP 205/101; PULSE 89
[2023-03-07] MEDS: LABETALOL 20 MG/4 ML SYRINGE IV (00:53)
[2023-03-07] MEDS: SODIUM CHLORIDE 0.9% FLUSH 10 ML IV (00:54)
[2023-03-07] MEDS: AMLODIPINE 5 MG TABLET PO ×2 (01:17→08:58)
[2023-03-07 03:03] LABS: Labcorp Hemoglobin (Hb) A1c 6.3 % (4.8-5.6)
[2023-03-07 04:00] VITALS: BP 179/80; BP 179/82; PULSE 87; RESP 16; TEMP 36.4; O2SAT 93
[2023-03-07] MEDS: PANTOPRAZOLE DR 40 MG TABLET 20 MG PO (07:07)
[2023-03-07 08:00] VITALS: BP 189/105; PULSE 81; RESP 17; TEMP 36.8; O2SAT 95
--- NOTE | 2023-03-07 08:07 | P.DS_ITS ---
History of Present Illness History of Present Illness Date Patient Seen: 03/07/23 Time Patient Seen: 08:07 Chief complaint: stroke Narrative: Per admitting provider, 57-year-old female with history of previous ischemic stroke 2 years ago, intermittent TIAs, hypertension (presently off of her prescribed lisinopril), tobacco dependence, methamphetamine abuse, and current homelessness presented to the emergency department with acute onset of difficulty walking, slurred speech, and word-finding difficulty. She notes she got up to go to the bathroom and kept falling to the side. She was staying at a friend's house and notes they were drinking alcohol last evening, but she states she did not drink very much. Due to her symptoms, EMS was called. When they arrived, they found her with a fixed rightward gaze, difficulty with speech, and initial blood pressures of 220/140. Prior to arrival in the emergency department, her symptoms began imp roving. Her blood pressure also improved to 170s over 120s. In the emergency department, labs were completed which were fairly unremarkable. She did have an elevated glucose of 178. CPK was 159. UA revealed trace glucose but was otherwise negative. Urine drug screen was positive for methamphetamines. SARs CoV 2 testing was negative. Coags were performed and were negative. Initial CT scan revealed a small acute left paramedian cerebellar parenchymal hematoma. Changes of mild chronic small-vessel ischemia in the cerebral white matter. CTA of the head and neck revealed redemonstration of the left paramedian cerebellar intraparenchymal hemorrhage, no evidence of aneurysm, normal intracranial arterial circulation, moderate noncalcified left proximal ICA stenosis 50-69%. Normal vertebral artery system. Tele stroke was contacted by the emergency department. They recommended nicardipine drip and repeat CT scan of the head in 4-6 hours. If findings were stable, they recommended no further interventions and suggested the patient could be admitted to the hospital here and did not require transfer. Chest x-ray was performed and revealed no acute cardiopulmonary process. Patient's blood pressures normalized while on the nicardipine. Follow-up head CT was performed with no ch richard to the small left cerebellar hematoma and adjacent edema were noted. Patient is now admitted to the intensive care unit. She is having some elevated blood pressure after being weaned off of the nicardipine drip. She can is of significant nausea and vertiginous symptoms with any movement. She is lying on her right side with her eyes closed. She denies any residual speech deficits. No tingling or numbness. No weakness. NIH score is presently 1. She tells me she last used methamphetamine 2 nights ago. She states she is afraid of the dark and has been couch surfing and therefore uses methamphetamine to help her stay awake. She describes using intermittently rather than daily. She notes that she was supposed to get her lisinopril refilled but the physician never sent it in so she failed to follow up on it. Discharge Providers Provider Date of admission: 03/05/23 16:31 Discharge Date: 03/07/23 Consults: 03/05/23 17:38 Consult to Discharge Planning Routine Comment: Consult to Occupational Therapy Evaluate & Treat Comment: Physician Instructions: Evaluate and treat Consult to Physical Therapy Evaluate & Treat Comment: Physician Instructions: Evaluate and Treat Consult to Speech Therapy Evaluate & Treat Comment: Physician Instructions: Evaluate and treat Discharge provider: Jose L Loredo DO Summary Hospital Course Discharge Diagnosis: 1. Acute small left paramedian cerebellar intraparenchymal hematoma with ad jacent edema 2. Hypertensive emergency, present on admission 3. Hyperglycemia, improved 4. History of ischemic cerebrovascular accident 5. Methamphetamine abuse 6. History of tobacco dependence 7. Homelessness Hospital Course: 57 year old female with PMH of HTN, prior CVA, methamphetamine use and tobacco use in the past, with unstable housing situation admitted with a cerebellar hematoma after presenting for dizziness. This is presumed secondary to small intraparencymal hemorrhage. She was briefly on a cardene infusion for presumed hypertensive emergency though this was discontinued quickly when she became normotensive. She had continued improvement with meclizine and blood pressure control. She remained intermittently hypertensive over her stay, but had much improvement with losartan and amlodipine. Recommend she continue these medi cations for now, follow up very shortly with primary care for further adjustments as an outpatient. She was counseled on importance of abstinence from methamphetamine, and housing arrangements with a friend locally were arranged by the patient at discharge. Time Spent with Patient Time spent: Greater than 30 minutes Exam Vital Signs (past 8 hours): - 03/07/23 00:53 03/07/23 04:00 03/07/23 04:00 Temperature 97.5 F L Pulse Rate 89 87 87 Respiratory Rate 16 Blood Pressure 205/101 H 179/82 H 179/80 H Pulse Oximetry 93 Oxygen Delivery Method Room Air Oxygen Flow Rate 0 Narrative Exam Narrative: GEN: Middle-aged female, Alert and oriented x3, no acute distress HEENT: Normocephalic, face symmetric, pupils equal round reactive to light NECK: Supple, no lymphadenopathy, thyroid without enlargement or nodularity, carotids no bruits CHEST: Respiratory excursions symmetric, clear to auscultation bilaterally CV: Regular rate and rhythm, no murmurs, rubs, gallops, PMI can not be palpated ABD: Soft, nontender, nondistended EXTR: Warm, well perfused, no clubbing/cyanosis/edema SKIN: Warm and dry, without rash NEURO: Alert and oriented x3, strength +5/5 in all extremities PSYCH: Mood and affect is within normal limits Objective Labs 03/06/23 04:15 03/06/23 04:15 Labs: Laboratory Results - last 24 hr 03/05/23 12:10 Hgb A1c (Ref Lab) 6.3 H [facility] Medical History (Updated 03/05/23 @ 17:44 by Michoacano Taylor DO) Hypertension Social History household members: none Discharge Plan Discharge Plan Patient Disposition: Home Provider Discharge Comment: You were admitted to the hospital with dizziness due to a small bleed in your brain. Please start blood pressure medications at home and follow up with a primary care doctor for continued refills and possible further adjustments to medications moving forward. Continue to take vertigo medicine as needed when symptoms arise. Albuterol inhaler was sent to your pharmacy as well. Discharge orders & Medications Prescriptions: New amlodipine [Norvasc] 5 mg Tablet 5 mg PO DAILY 30 Days Qty: 30 0RF losartan 100 mg tablet 100 mg PO DAILY 3 Days Qty: 30 0RF meclizine 25 mg tablet 25 mg PO TID PRN (Reason: Dizziness Or Vertigo) 30 Days Qty: 30 0RF albuterol sulfate 90 mcg/actuation HFA aerosol inhaler 1 inh inhalation QID PRN (Reason: shortness of breath or wheezing) 30 Days Qty: 8.5 0RF Diet/Activity/Treatments Diet: Diet as Tolerated Activity: As tolerated Visit Report/Discharge Packet Stand Alone Forms: Patient Portal/API, Stroke Signs & Symptoms Discharges patient from system. Discharge Date/Time: 03/07/23 10:30
[2023-03-07] MEDS: LOSARTAN 50 MG TABLET PO (08:58)
[2023-03-07] MEDS: MECLIZINE HCL 12.5 MG TABLET 25 MG PO (08:58)
== END 2023-03-07 10:30 | disposition home or self-care (01) | DRG 44 ==
LOC: ED 13:25 → AC 16:32 → ICU 17:11
PROVIDERS: Admitting Provider Family Medicine; Emergency Provider Emergency Medicine; Referring Provider Emergency Medicine; Visit Provider Family Medicine
DX: I61.4 Nontraumatic intracerebral hemorrhage in cerebellum (principal); I10 Essential (primary) hypertension; G93.6 Cerebral edema; R73.9 Hyperglycemia, unspecified; I16.1 Hypertensive emergency; F15.10 Other stimulant abuse, uncomplicated; Z87.891 Personal history of nicotine dependence; Z20.822 Contact with and (suspected) exposure to COVID-19; Z86.73 Personal history of transient ischemic attack (TIA), and cerebral infarction without residual deficits; Z59.01 Sheltered homelessness
CPT/HCPCS: 36415; 70450; 70496; 70498; 71045; 80048; 80053; 80305; 80320; 81001; 82550; 82962; 83036; 84484; 85025; 85610; 85730; 87635; 87797; 92522; 93005; 93010; 96365; 96366; 96375; 97162; 97165; 99285; 99291; C9803; J2405; Q9967